=== PATIENT | female | born 1975 | race Caucasian/White ===

== ENCOUNTER 2016-12-09 19:19 | Emergency (ER) | payer BC ==
--- NOTE | 2016-12-09 20:24 | UC ---
Cardiac HPI - HPI Summary HPI Summary: The patient comes in today for: 1. Left sided chest pain--"I think I cracked a rib." Onset: 2 days ago. Palliative/provocative: Touching and deep breathing makes it worse. Quality: Ache Region: Left chest Severity: 8/10 Time: Constant. Associated symptoms: Event: She states that she fell two days ago. She wonders if she injured her ribs. She had pain in that area. * - History of Current Complaint Stated Complaint: S/P FALL PAIN IN LEFT RIBS Time Seen by Provider: 12/09/16 20:16 Hx Obtained From: Patient - Allergy/Home Medications Allergies/Adverse Reactions: Allergies Allergy/AdvReac Type Severity Reaction Status Date / Time Bee Venom Allergy Swelling Verified 12/07/16 19:25 Of Face,Lips,& Throat PMH/Surg Hx/FS Hx/Imm Hx Previously Healthy: No Endocrine History Of: Reports: Thyroid Disease - Hypothyroidism Denies: Diabetes, Hyperthyroidism, Hypothyroidism, Dyslipidemia Cardiovascular History Of: Reports: Cardiac Disorders - PSVT Denies: Hypertension, Pacemaker/ICD, Myocardial Infarction, Congestive Heart Failure, Atrial Fibrillation, Deep Vein Thrombosis, Bleeding Disorders Respiratory History Of: Reports: Asthma Denies: COPD, Bronchitis, Pneumonia, Pulmonary Embolism GI/ History Of: Reports: Gastroesophageal Reflux Denies: Ulcer, Gastrointestinal Bleed, Gall Bladder Disease, Kidney Stones, Diverticulitis, Renal Disease, Urosepsis Neurological History Of: Denies: TIA, CVA, Dementia, Seizures, Migraine Psychological History Of: Reports: Anxiety Denies: Depression, Bipolar Disorder, Schizophrenia, Post Traumatic Stress Disorder Cancer History Of: Denies: Lung Cancer, Colorectal Cancer, Breast Cancer, Prostate Cancer, Cervical Cancer Other History Of: Negative For: HIV, Hepatitis B, Hepatitis C, Anticoagulant Therapy - Surgical History Surgical History: Yes Surgery Procedure, Year, and Place: , 2013, [facility]. Endoscopy, 1996, [facility]. T&A, 1990. weight loss surgery 09/01/16. lap luca 11/14/16 - Family History Known Family History: Positive: Cardiac Disease, Hypertension - Social History Alcohol Use: None Substance Use Type: None Smoking Status (MU): Former Smoker - Immunization History Most Recent Influenza Vaccination: September 2013 Review of Systems Constitutional: Negative Skin: Negative Eyes: Negative ENT: Negative Respiratory: Negative Cardiovascular: Chest Pain Gastrointestinal: Negative Genitourinary: Negative All Other Systems Reviewed And Are Negative: Yes Physical Exam Triage Information Reviewed: Yes Appearance: Well-Appearing, No Pain Distress, Well-Nourished Vital Signs Reviewed: Yes Eyes: Positive: Conjunctiva Clear. Negative: Discharge ENT: Positive: Hearing grossly normal. Negative: Pharyngeal erythema, Nasal congestion, Nasal drainage, TM bulging, TM dull, TM red, Tonsillar swelling, Tonsillar exudate Dental: Negative: Gross Decay/Caries @, Dental Fracture @ Neck: Positive: Supple, Nontender, No Lymphadenopathy. Negative: Nuchal Rigidity Respiratory: Positive: Lungs clear, No respiratory distress, No accessory muscle use. Negative: Crackles, Wheezing Cardiovascular: Positive: RRR, No Murmur Abdomen Description: Positive: Nontender, No Organomegaly, Soft. Negative: Distended, Guarding Musculoskeletal: Positive: Strength Intact, Other: - She had tenderness to palpation of the left lower anterior rib area. No ecchymosis or edema or subcutaneous emphysema. Neurological: Positive: Alert, Muscle Tone Normal Psychological: Negative: Age Appropriate Behavior, Consolable Skin: Negative: rashes, breakdown Diagnostics - Radiology No standard instances Xray Interpretation: No Acute Changes Radiology Interpretation Completed By: Radiologist - Assessment/Plan Course Of Treatment: Patient told that her x-ray of the ribs were negative. Pain treatment options were offered, but she was not interested in any pain medication. - Clinical Impression Provider Diagnoses: Left chest wall injury, contusion Discharge - Discharge Plan Condition: Stable Disposition: HOME Patient Education Materials: Chest Wall Pain (ED) Referrals: Evita Sneed MD [Primary Care Provider] - 1 Week (Please see your primary care provider in about one to two weeks to see how well you are doing. If you get worse, please be seen sooner.) Additional Instructions: Please take Tylenol as needed for pain. If you get worse, please be seen sooner.
[2016-12-09 20:33] VITALS: BP 121/78
--- NOTE | 2016-12-09 21:09 | RAD ---
Indication: Pain with deep breath post fall one day ago. LEFT anterior lower rib pain radiating lateral. Comparison: March 25, 2015 Technique: 6 view LEFT unilateral rib series. Report: Elevated lung volumes. Clear lungs and pleural spaces. Negative for pneumothorax. The heart, pulmonary vasculature, and mediastinal contours are unremarkable. No LEFT rib fracture evident. Gallbladder fossa and epigastric surgical clips. IMPRESSION: 1. Negative for LEFT rib fracture. 2. Probable obstructive lung disease.
== END 2016-12-09 21:29 | disposition home or self-care (01) ==
LOC: UCCORT 19:19
DX: S20.212A Contusion of left front wall of thorax, initial encounter (principal); W19.XXXA Unspecified fall, initial encounter; Y93.9 Activity, unspecified; Y99.9 Unspecified external cause status
CPT/HCPCS: 99212; G0463

== ENCOUNTER 2017-01-23 10:30 | Emergency (ER) | payer BC ==
[2017-01-23 11:11] VITALS: BP 126/73
--- NOTE | 2017-01-23 11:17 | UC ---
Respiratory Complaint HPI - History of Current Complaint Chief Complaint: UCRespiratory Stated Complaint: COUGH Time Seen by Provider: 01/23/17 11:03 Hx Obtained From: Patient Hx Last Menstrual Period: 01/19/17 Onset/Duration: Gradual Onset Timing: Constant Severity Initially: Moderate Severity Currently: Moderate Character: Cough: Productive Aggravating Factors: Deep Breaths, Recumbent Position Associated Signs And Symptoms: Positive: Chills, Wheezing, URI, Nasal Congestion , Sinus Discomfort - Allergies/Home Medications Allergies/Adverse Reactions: Allergies Allergy/AdvReac Type Severity Reaction Status Date / Time Bee Venom Allergy Swelling Verified 01/23/17 11:01 Of Face,Lips,& Throat Home Medications: Home Medications Albuterol/Ipratropium NEB.SAMEER* [Duoneb (Albuterol 2.5 MG/Ipratropium 0.5 MG)] 1 neb INH Q6H PRN 01/23/17 [History Confirmed 01/23/17] Fluticasone NASAL * [Flonase *] 1 spray INH BID 01/23/17 [History Confirmed ] PMH/Surg Hx/FS Hx/Imm Hx Previously Healthy: No - asthma. Other History Of: Negative For: HIV, Hepatitis B, Hepatitis C, Anticoagulant Therapy - Surgical History Surgical History: Yes Surgery Procedure, Year, and Place: , 2013, [facility]. Endoscopy, 1996, [facility]. T&A, 1990. weight loss surgery 09/01/16. lap luca 11/14/16 - Family History Known Family History: Positive: Cardiac Disease, Hypertension - Social History Alcohol Use: None Substance Use Type: None Smoking Status (MU): Former Smoker When Did the Patient Quit Smoking/Using Tobacco: 1999 - Immunization History Most Recent Influenza Vaccination: September 2013 Review of Systems All Other Systems Reviewed And Are Negative: Yes Physical Exam Triage Information Reviewed: Yes Appearance: Well-Appearing, No Pain Distress, Well-Nourished Vital Signs: Initial Vital Signs Temp 98.4 F 01/23/17 10:56 Pulse 65 01/23/17 10:56 Resp 14 01/23/17 10:56 BP 126/73 01/23/17 10:56 Pulse Ox 98 01/23/17 10:56 Vital Signs Reviewed: Yes Eye Exam: Normal ENT Exam: Normal Neck exam: Normal Respiratory Exam: Normal Cardiovascular Exam: Normal Abdominal Exam: Normal Musculoskeletal Exam: Normal Neurological Exam: Normal Psychological Exam: Normal Skin Exam: Normal UC Diagnostic Evaluation - Laboratory O2 Sat by Pulse Oximetry: 98 Respiratory Course/Dx - Differential Dx/Diagnosis Provider Diagnoses: acute bronchitis. acute asthma exacerbation. Discharge - Discharge Plan Condition: Good Disposition: HOME Prescriptions: Acetaminop/Codeine 30 MG TAB* [Tylenol/Codeine 30 MG TAB*] 1 tab PO Q8H PRN #12 tab MDD 1 PRN Reason: Cough Azithromyxin MICHAEL (NF) [Z-Michael (Zithromax) 250 mg tabs #6] 2 tab PO .TODAY, THEN 1 DAILY #6 tab predniSONE TAB* [Deltasone TAB*] 20 mg PO DAILY #20 tab Patient Education Materials: Acute Bronchitis (ED) Forms: *Work Release Referrals: Evita Sneed MD [Primary Care Provider] - If Needed
== END 2017-01-23 11:23 | disposition home or self-care (01) ==
LOC: UCCORT 10:30
DX: J45.901 Unspecified asthma with (acute) exacerbation (principal); J20.9 Acute bronchitis, unspecified; Z87.891 Personal history of nicotine dependence
CPT/HCPCS: 99212; G0463

== ENCOUNTER 2018-03-08 20:10 | Emergency (ER) | payer BC ==
--- OUTSIDE RECORDS SUMMARY | 2018-03-08 20:28 | XMS REPORT ---
:1975 External Reference #:[id number] Author Organization [facility] Address [address] [place] [address] Phone [phone] Care Team Providers Name Role Phone Evita Sneed M.D. Primary Care Physician Unavailable Payers Type Date Identification Numbers Payment Provider Subscriber Commercial Effective: Policy Number: [id number] [facility] Meghan Allen 2013 Healthcare Group Number: [id number] [address] Group Name: [place] [address] PayID: [id number] Problems Date Description Provider Status Onset: 08/21/2013 Allergic rhinitis due to pollen MICHAEL Brewer Active Onset: 08/21/2013 Extrinsic asthma without status MICHAEL Brewer Active asthmaticus Onset: 08/21/2013 Allergic rhinitis MICHAEL Brewer Active Onset: 03/19/2014 Acute upper respiratory infection MICHAEL Brewer Active of multiple sites Onset: 08/06/2014 Exacerbation of asthma MICHAEL Brewer Active Onset: 04/10/2015 Cough MICHAEL Brewer Active Onset: 05/22/2015 Body mass index 40+ - severely MICHAEL Brewer Active obese Onset: 05/22/2015 Uncomplicated severe persistent MICHAEL Brewer Active asthma Onset: 06/19/2015 Immunization MICHAEL Brewer Active Onset: 06/19/2015 Severe persistent asthma with Trina Chantelle, RESULTS ENGINEER-BC Active (acute) exacerbation Onset: 10/06/2015 Allergic urticaria Trina LockhartJAILENEP-BC Active Onset: 09/29/2016 Allergic rhinitis due to animals Marilynn Art, Active RESULTS ENGINEER-C Onset: 10/21/2016 Uncomplicated severe persistent Octavia YanickJAILENE bullockP-C Active asthma Onset: 01/13/2017 Body mass index 30+ - obesity Isaías Crowley M.D. Active Family History Date Family Member(s) Problem(s) Comments General Seasonal Allergies General Asthma General Bronchitis General Diabetes General Celiac General Gastroesophageal Reflux Disease (GERD) General Heart Disease General Hypertension General Migraine General Thyroid Disease General Skin Disease/ Rash Father Bronchitis Father Heart Disease Father Hypertension Father Skin Disease/ Rash psoriasis Mother Asthma Mother Bronchitis Mother Diabetes Mother Headache, Chronic Mother Thyroid Disease First Son Asthma First Son Migraine First Son Skin Disease/ Rash ezcema First Daughter Skin Disease/ Rash ezcema First Brother Seasonal Allergies First Brother Bronchitis First Brother Asthma First Brother Headache, Chronic First Sister Seasonal Allergies First Sister Asthma First Sister Bronchitis First Sister Celiac Social History Type Date Description Comments Marital Status Legal Status: Lives With Spouse Lives With Children Home Environment 20+Year Old Home, 2 Years In Current Home Home Environment 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 Home Environment Has central air Home Environment The basement is dry Home Environment Cotton Comforter Home Environment Mattress is 5 years old Home Environment Mattress is not encased in an allergy proof case Home Environment Regular Mattress Home Environment Pillows are not encased in an allergy proof case Home Environment There are no draperies in the home Home Environment The home is not ej Home Environment The floors are carpeted Home Environment The floors are wood Home Environment Uses forced air heating Home Environment [place] Home Environment Water Source: [facility] Smoke-Free Home is smoke-free Smoke-Free Work is smoke-free Pets None 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 RESULTS ENGINEER-C Single-Dose Vial(S), Discard After Use. Syringe 3ML 03/17/ Active [id number] 4units For Use With Shaila L/L No 2016 Xolair. Duskelly, Needle BONIFACIO-C Needle 18G X 03/17/ Active [id number] 4units For Use With Shaila 1" BD 2016 Xolair. BONIFACIO Sellers-C Auvi-Q 09/21/ Active Solution 0.3mg/0.3M 3-2pac use as J45.50 Shaila 2017 Auto-Injec L ks directed. im. Marlo t BONIFACIO-C Cetirizine 08/26/ Active Tablets 10mg 30tabs 1 by mouth J45.50 Octavia HCL 2017 every day MITCHELL Herndon J30.81 J45.50 Xopenex HFA 06/02/2016 Active Aerosol 45mcg/Act 1inhaler 2 puffs J45.50 Quinn Denton q4-6 Kirkpatrick, hours as M.D. needed for sob, cough, wheeze Ipratropium 03/25/2015 Active Solution 0.5-2.5(3) 1box 1 vial J45.50 Isaías [place]/Alb mg/3ML via Viviana Crowley uterol nebulizer Sulfate every 6 hours as needed. Levalbutero 03/21/2015 Active Nebulizer 1.25mg/3ML 1box use via Ghislaine M l HCL nebulizer Narinder, every 4 M.D. -6 hours prnr shortness of breath, cough or wheezing Albuterol 09/05/2014 Active Nebulizer (2.5mg/3ML 1Box #1 via J45.50 Isaías Sulfate ) 0.083% nebulizer Viviana Crowley every 4-6 hours as needed for cough, shortness of breath and wheezing Symbicort 08/15/2012 Active Aerosol 160-4.5mcg 3units inhale 2 Marilynn /Act puffs in Corona-Princess the son, MITCHELL morning and in the evening Montelukast 08/15/2012 Active Tablets 10mg 90tabs 1 tablet Marilynn Sodium by mouth Shannan every son, RESULTS ENGINEER-Aida evening Synthroid Active Tablets 125mcg once a Unknown day Fluticasone Active Suspension 50mcg/Act 1 squirt J45.50 Unknown Propionate each nostril daily Colace Active Capsules 100mg 2 by Unknown mouth every day Multivitami Active Tablets once a Unknown n Women day Xolair Active Solution 150mg 2units Reconstit Shaila Rec irina Each Dussing, Of 2 RESULTS ENGINEER-C Vials With 1.4ML Sterile Water. Inject 1.2ML Separatel y Subcutane ously From Each Vial Once Every Four Pantoprazol Active Tablets DR 40mg take 1 Unknown e Sodium tablet by mouth once daily Sucralfate Active Tablets 1gm Unknown Dymista Active Suspension 137-50mcg/ 2 squirt Unknown Act each nostril daily Fluoxetine Active Tablets 20mg take 3 Unknown HCL tablets by mouth daily Medications Administered in Office Medication Date Status Form Strength Qnty SIG Indications Ordering Provider Xolair Administered Injection Galina Hays RESULTS ENGINEER-C Xolair Administered Injection Quinn Kirkpatrick M.D. Xolair Administered Injection Milla 018 Bal, RESULTS ENGINEER-C Xolair Administered Injection Quinn Kirkpatrick M.D. Xolair Administered Injection Milla 018 Bal, RESULTS ENGINEER-C Xolair Administered Injection Milla 018 Bal, RESULTS ENGINEER-C Xolair Administered Injection Quinn Kirkpatrick M.D. Xolair Administered Injection Milla 018 Bal, RESULTS ENGINEER-C Xolair Administered Injection Galina Hernandez M.D. Xolair Administered Injection Octavia Herndon RESULTS ENGINEER-C Xolair Administered Injection Quinn Kirkpatrick M.D. Xolair Administered Injection Quinn Kirkpatrick M.D. Xolair Administered Injection Milla 017 Uldrich, RESULTS ENGINEER-C Xolair Administered Injection Quinn Kirkpatrick M.D. Xolair Administered Injection Milla 017 Uldrich, RESULTS ENGINEER-C Xolair Administered Injection Milla 017 Uldrich, RESULTS ENGINEER-C Xolair Administered Injection Marilynn 017 Kaelyn, RESULTS ENGINEER-C Xolair Administered Injection Isaías Crowley, 017 Viviana Xolair Administered Injection Octavia 017 Yanick, RESULTS ENGINEER-C Xolair Administered Injection Octavia 017 Yanick, RESULTS ENGINEER-C Xolair Administered Injection Octavia 017 Yanick, RESULTS ENGINEER-C Xolair Administered Injection Shaila Dussing, 017 RESULTS ENGINEER-C Xolair Administered Injection Octavia 017 Yanick, RESULTS ENGINEER-C Xolair Administered Injection Isaías Carline, 016 Viviana Xolair Administered Injection Quinn Kirkpatrick M.D. Xolair Administered Injection Quinn Denton 016 Viviana Kirkpatrick Xolair Administered Injection Debbie Genao 016 Piero, RPA-C Xolair Administered Injection Shaila Dussing, 016 RESULTS ENGINEER-C Xolair Administered Injection Trina 016 Chantelle, RESULTS ENGINEER-BC Xolair Administered Injection Trina 016 Chantelle, RESULTS ENGINEER-BC Xolair Administered Injection Shaila Dussing, 016 RESULTS ENGINEER-C Xolair Administered Injection Shaila Dussing, 016 RESULTS ENGINEER-C Xolair Administered Injection Trina 016 Chantelle, RESULTS ENGINEER-BC Xolair Administered Injection Trina 016 Chantelle, RESULTS ENGINEER-BC Xolair Administered Injection Trina 016 Chantelle, RESULTS ENGINEER-BC Xolair Administered Injection Shaila Dussing, 015 RESULTS ENGINEER-C Xolair Administered Injection Shaila Dussing, 015 RESULTS ENGINEER-C Xolair Administered Injection Trina 015 Chantelle, RESULTS ENGINEER-BC Xolair Administered Injection Trina 015 Chantelle, RESULTS ENGINEER-BC Injection Administered Injection Glenn 011 Frankie, M.D. Injection Administered Injection Glenn 011 Frankie, M.D. Injection Administered Injection Glenn 011 Frankie, M.D. Injection Administered Injection Glenn 011 Frankie, M.D. Injection Administered Injection Glenn 011 Frankie, M.D. Injection Administered Injection Glenn 011 Frankie, M.D. Injection Administered Injection Glenn 011 Frankie, M.D. Injection Administered Injection Glenn 011 Frankie, M.D. Injection Administered Injection Glenn 011 Frankie, M.D. Injection Administered Injection Glenn 011 Frankie, M.D. Injection Administered Injection Glenn 010 Frankie, M.D. Injection Administered Injection Glenn 010 Frankie, M.D. Injection Administered Injection Glenn 010 Frankie, M.D. Injection Administered Injection Glenn 010 Frankie, M.D. Injection Administered Injection Glenn 010 Frankie, M.D. Injection Administered Injection Glenn 010 Frankie, M.D. Injection Administered Injection Glenn 010 Frankie, M.D. Injection Administered Injection Glenn 010 Frankie, M.D. Injection Administered Injection Glenn 010 Frankie, M.D. Injection Administered Injection Glenn 010 Frankie, M.D. Injection Administered Injection Glenn 010 Frankie, M.D. Injection Administered Injection Glenn 010 Frankie, M.D. Injection Administered Injection Glenn 010 Frankie, M.D. Injection Administered Injection Glenn 010 Frankie, M.D. Injection Administered Injection Glenn 010 Frankie, M.D. Injection Administered Injection Glenn 010 Frankie, M.D. Injection Administered Injection Glenn 010 Frankie, M.D. Injection Administered Injection Glenn 010 Frankie, M.D. Injection Administered Injection Glenn 010 Frankie, M.D. Injection Administered Injection Glenn 010 Frankie, M.D. Injection Administered Injection Glenn 010 Frankie, M.D. Injection Administered Injection Glenn 010 Frankie, M.D. Injection Administered Injection Glenn 010 Frankie, M.D. Injection Administered Injection Glenn 010 Frankie, M.D. Injection Administered Injection Glenn 010 Frankie, M.D. Injection Administered Injection Glenn 010 Frankie, M.D. Injection Administered Injection Glenn 010 Frankie, M.D. Injection Administered Injection Glenn 010 Frankie, M.D. Injection Administered Injection Glenn 010 Frankie, M.D. Injection Administered Injection Glenn 010 Frankie, M.D. Injection Administered Injection Glenn 010 Frankie, M.D. Injection Administered Injection Glenn 010 Frankie, M.D. Injection Administered Injection Glenn 010 Frankie, M.D. Injection Administered Injection Glenn 010 Frankie, M.D. Injection Administered Injection Glenn 010 Frankie, M.D. Injection Administered Injection Hayes Goss, M.D. Injection Administered Injection Ghislaine M Andi Barcenas, M.D. Injection Administered Injection Ghislaine M Andi Barcenas, M.D. Injection Administered Injection Glenn 009 Frankie, M.D. Injection Administered Injection Glenn 009 Frankie, M.D. Injection Administered Injection Glenn 009 Frankie, M.D. Injection Administered Injection Glenn 009 Frankie, M.D. Injection Administered Injection Glenn 009 Frankie, M.D. Injection Administered Injection Glenn 009 Frankie, M.D. Injection Administered Injection Glenn 009 Frankie, M.D. Injection Administered Injection Glenn 009 Frankie, M.D. Injection Administered Injection Glenn 009 Frankie, M.D. Injection Administered Injection Andrés 009 Chrostowski, M.D. Injection Administered Injection Glenn 009 Frankie, M.D. Injection Administered Injection Glenn 009 Frankie, M.D. Injection Administered Injection Glenn 009 Frankie, M.D. Injection Administered Injection Glenn 008 Frankie, M.D. Injection Administered Injection Glenn 008 Frankie, M.D. Injection Administered Injection Glenn 008 Frankie, M.D. Injection Administered Injection Glenn 008 Frankie, M.D. Injection Administered Injection Glenn 008 Frankie, M.D. Injection Administered Injection Glenn 008 Frankie, M.D. Injection Administered Injection Glenn 008 Frankie, M.D. Injection Administered Injection Glenn 008 Frankie, M.D. Injection Administered Injection Glenn 008 Frankie, M.D. Injection Administered Injection Glenn 007 Frankie, M.D. Injection Administered Injection Glenn 007 Frankie, M.D. Injection Administered Injection Glenn 007 Frankie, M.D. Injection Administered Injection Glenn 007 Frankie, M.D. Injection Administered Injection Glenn 007 Frankie, M.D. Injection Administered Injection Glenn 007 Frankie, M.D. Injection Administered Injection Glenn 007 Frankie, M.D. Injection Administered Injection Glenn 007 Frankie, M.D. Injection Administered Injection Glenn 007 Frankie, M.D. Injection Administered Injection Glenn 007 Frankie, M.D. Injection Administered Injection Glenn 007 Frankie, M.D. Injection Administered Injection Glenn 007 Frankie, M.D. Injection Administered Injection Glenn 007 Frankie, M.D. Injection Administered Injection Glenn 007 Frankie, M.D. Injection Administered Injection Glenn 007 Frankie, M.D. Injection Administered Injection Glenn 007 Frankie, M.D. Injection Administered Injection Glenn 007 Frankie, M.D. Injection Administered Injection Glenn 007 Frankie, M.D. Injection Administered Injection Glenn 007 Frankie, M.D. Injection Administered Injection Glenn 006 Frankie, M.D. Injection Administered Injection Glenn 006 Frankie, M.D. Injection Administered Injection Glenn 006 Frankie, M.D. Injection Administered Injection Glenn 006 Frankie, M.D. Injection Administered Injection Glenn 006 Frankie, M.D. Injection Administered Injection Glenn 006 Frankie, M.D. Injection Administered Injection Glenn 006 Frankie, M.D. Injection Administered Injection Glenn 006 Frankie, M.D. Injection Administered Injection Glenn 006 Frankie, M.D. Injection Administered Injection Glenn 006 Frankie, M.D. Injection Administered Injection Glenn 006 Frankie, M.D. Injection Administered Injection Glenn 006 Frankie, M.D. Injection Administered Injection Glenn 006 Frankie, M.D. Injection Administered Injection Glenn 006 Frankie, M.D. Injection Administered Injection Glenn 006 Frankie, M.D. Injection Administered Injection Glenn 006 Frankie, M.D. Injection Administered Injection Lgenn 006 Frankie, M.D. Injection Administered Injection Glenn 006 Frankie, M.D. Injection Administered Injection Glenn 006 Frankie, M.D. Injection Administered Injection Glenn 006 Frankie, M.D. Injection Administered Injection Glenn 006 Frankie, M.D. Injection Administered Injection Glenn 006 Frankie, M.D. Injection Administered Injection Glenn 006 Frankie, M.D. Injection Administered Injection Glenn 005 Frankie, M.D. Injection Administered Injection Glenn 005 Frankie, M.D. Injection Administered Injection Glenn 005 Frankie, M.D. Injection Administered Injection Glenn 005 Frankie, M.D. Injection Administered Injection Glenn 005 Frankie, M.D. Injection Administered Injection Glenn 005 Frankie, M.D. Injection Administered Injection Glenn 005 Frankie, M.D. Injection Administered Injection Glenn 005 Frankie, M.D. Injection Administered Injection Glenn 005 Frankie, M.D. Injection Administered Injection Glenn 005 Frankie, M.D. Injection Administered Injection Glenn 005 Frankie, M.D. Injection Administered Injection Glenn 005 Frankie, M.D. Injection Administered Injection Glenn 005 Frankie, M.D. Injection Administered Injection Glenn 005 Frankie, M.D. Injection Administered Injection Glenn 005 Frankie, M.D. Injection Administered Injection Glenn 005 Frankie, M.D. Injection Administered Injection Glenn 005 Frankie, M.D. Injection Administered Injection Glenn 005 Frankie, M.D. Injection Administered Injection Glenn 005 Frankie, M.D. Injection Administered Injection Glenn 005 Frankie, M.D. Injection Administered Injection Glenn 005 Frankie, M.D. Injection Administered Injection Glenn 004 Frankie, M.D. Injection Administered Injection Glenn 004 Frankie, M.D. Injection Administered Injection Glenn 004 Frankie, M.D. Injection Administered Injection Glenn 004 Frankie, M.D. Injection Administered Injection Glenn 004 Frankie, M.D. Injection Administered Injection Glenn 004 Frankie, M.D. Injection Administered Injection Glenn 004 Frankie, M.D. Injection Administered Injection Glenn 004 Frankie, M.D. Injection Administered Injection Glenn 004 Frankie, M.D. Injection Administered Injection Glenn 004 Frankie, M.D. Injection Administered Injection Glenn 004 Frankie, M.D. Injection Administered Injection Glenn 004 Frankie, M.D. Injection Administered Injection Glenn 004 Frankie, M.D. Injection Administered Injection Lgenn 004 Frankie, M.D. Injection Administered Injection Glenn 004 Frankie, M.D. Injection Administered Injection Glenn 004 Frankie, M.D. Injection Administered Injection Glenn 004 Frankie, M.D. Injection Administered Injection Glenn 004 Frankie, M.D. Injection Administered Injection Glenn 004 Frankie, M.D. Injection Administered Injection Glenn 004 Frankie, M.D. Injection Administered Injection Glenn 004 Frankie, M.D. Injection Administered Injection Glenn 004 Frankie, M.D. Injection Administered Injection Glenn 004 Frankie, M.D. Injection Administered Injection Glenn 003 Frankie, M.D. Injection Administered Injection Glenn 003 Frankie, M.D. Injection Administered Injection Glenn 003 Frankie, M.D. Injection Administered Injection Glenn 003 Frankie, M.D. Injection Administered Injection Glenn 003 Frankie, M.D. Injection Administered Injection Glenn 003 Frankie, M.D. Injection Administered Injection Glenn 003 Frankie, M.D. Injection Administered Injection Glenn 003 Frankie, M.D. Injection Administered Injection Glenn 003 Frankie, M.D. Injection Administered Injection Glenn 003 Frankie, M.D. Injection Administered Injection Glenn 003 Frankie, M.D. Injection Administered Injection Glenn 003 Frankie, M.D. Injection Administered Injection Glenn 003 Frankie, M.D. Injection Administered Injection Glenn 003 Frankie, M.D. Injection Administered Injection Glenn 003 Frankie, M.D. Injection Administered Injection Glenn 003 Frankie, M.D. Injection Administered Injection Glenn 003 Frankie, M.D. Injection Administered Injection Glenn 003 Frankie, M.D. Injection Administered Injection Glenn 003 Frankie, M.D. Injection Administered Injection Glenn 003 Frankie, M.D. Immunizations CPT Code Status Date Vaccine Lot # 93932 Given 10/30/2013 Influenza Vaccine 05410 Given Unknown Pneumococcal Vaccine 00043 Given Unknown Influenza Vaccine 07014 Given Unknown Influenza Vaccine 08038 Given Unknown Influenza Vaccine Vital Signs Date Vital Result Comment 02/23/2018 Height 72 inches 6'0" Weight 260.00 lb Weight in kg's 117.936 Respiratory Rate 24 /min Heart Rate 75 /min O2 % BldC Oximetry 96 % BP Systolic 110 mmHg BP Diastolic 63 mmHg [facility] Test 23 BMI (Body Mass Index) 35.3 kg/m2 01/18/2018 Height 72 inches 6'0" Weight 252.00 lb Weight in kg's 114.307 Respiratory Rate 18 /min Heart Rate 68 /min O2 % BldC Oximetry 95 % BP Systolic 114 mmHg BP Diastolic 63 mmHg [facility] Control Test 15 BMI (Body Mass Index) 34.2 kg/m2 12/21/2017 Height 72 inches 6'0" Weight 258.00 lb Weight in kg's 117.029 Respiratory Rate 18 /min Heart Rate 70 /min O2 % BldC Oximetry 98 % BP Systolic 106 mmHg BP Diastolic 64 mmHg [facility] Control Test 22 BMI (Body Mass Index) 35.0 kg/m2 11/23/2017 Height 72 inches 6'0" Weight 258.00 lb Weight in kg's 117.029 Respiratory Rate 18 /min Heart Rate 73 /min O2 % BldC Oximetry 98 % BP Systolic 113 mmHg BP Diastolic 69 mmHg [facility] Control Test 24 BMI (Body Mass Index) 35.0 kg/m2 10/26/2017 Height 72 inches 6'0" Weight 260.00 lb Weight in kg's 117.936 Respiratory Rate 20 /min Heart Rate 78 /min O2 % BldC Oximetry 98 % BP Systolic 111 mmHg BP Diastolic 69 mmHg [facility] Control Test 24 BMI (Body Mass Index) 35.3 kg/m2 09/28/2017 Height 72 inches 6'0" Weight 260.00 lb Weight in kg's 117.936 Respiratory Rate 16 /min Heart Rate 70 /min O2 % BldC Oximetry 98 % BP Systolic 121 mmHg BP Diastolic 72 mmHg [facility] Control Test 22 BMI (Body Mass Index) 35.3 kg/m2 08/25/2017 Height 72 inches 6'0" Weight 254.00 lb Weight in kg's 115.214 Respiratory Rate 18 /min Heart Rate 82 /min O2 % BldC Oximetry 97 % BP Systolic 117 mmHg BP Diastolic 64 mmHg [facility] Control Test 24 BMI (Body Mass Index) 34.4 kg/m2 07/27/2017 Height 72 inches 6'0" Weight 258.00 lb Weight in kg's 117.029 Respiratory Rate 16 /min Heart Rate 73 /min O2 % BldC Oximetry 98 % BP Systolic 112 mmHg BP Diastolic 65 mmHg [facility] Test 24 BMI (Body Mass Index) 35.0 kg/m2 06/22/2017 Height 72 inches 6'0" Weight 261.00 lb Weight in kg's 118.390 Respiratory Rate 16 /min Heart Rate 77 /min O2 % BldC Oximetry 98 % BP Systolic 119 mmHg BP Diastolic 72 mmHg [facility] Test 24 BMI (Body Mass Index) 35.4 kg/m2 05/18/2017 Height 72 inches 6'0" Weight 270.00 lb Weight in kg's 122.472 Respiratory Rate 16 /min Heart Rate 83 /min O2 % BldC Oximetry 97 % BP Systolic 122 mmHg BP Diastolic 69 mmHg [facility] Test 24 BMI (Body Mass Index) 36.6 kg/m2 04/20/2017 Height 72 inches 6'0" Weight 272.00 lb Weight in kg's 123.379 Respiratory Rate 20 /min 72 Heart Rate 83 /min O2 % BldC Oximetry 97 % BP Systolic 116 mmHg BP Diastolic 63 mmHg [facility] Control Test 21 BMI (Body Mass Index) 36.9 kg/m2 03/16/2017 Height 72 inches 6'0" Weight 274.00 lb Weight in kg's 124.286 Respiratory Rate 20 /min Heart Rate 74 /min O2 % BldC Oximetry 98 % BP Systolic 121 mmHg BP Diastolic 68 mmHg [facility] Control Test 23 BMI (Body Mass Index) 37.2 kg/m2 02/09/2017 Height 72 inches 6'0" Weight 281.00 lb Weight in kg's 127.462 Respiratory Rate 16 /min Heart Rate 77 /min O2 % BldC Oximetry 97 % BP Systolic 124 mmHg BP Diastolic 70 mmHg [facility] Control Test 19 BMI (Body Mass Index) 38.1 kg/m2 01/13/2017 Height 72 inches 6'0" Weight 284.00 lb Weight in kg's 128.822 Respiratory Rate 16 /min Heart Rate 74 /min O2 % BldC Oximetry 97 % BP Systolic 114 mmHg BP Diastolic 65 mmHg BMI (Body Mass Index) 38.5 kg/m2 12/16/2016 Height 72 inches 6'0" Weight 292.00 lb Weight in kg's 132.451 Respiratory Rate 20 /min Heart Rate 75 /min O2 % BldC Oximetry 96 % BP Systolic 110 mmHg BP Diastolic 76 mmHg [facility] Control Test 23 BMI (Body Mass Index) 39.6 kg/m2 11/18/2016 Height 72 inches 6'0" Weight 296.00 lb Weight in kg's 134.266 Respiratory Rate 20 /min Heart Rate 84 /min O2 % BldC Oximetry 97 % BP Systolic 121 mmHg BP Diastolic 65 mmHg [facility] Control Test 24 BMI (Body Mass Index) 40.1 kg/m2 10/21/2016 Height 72 inches 6'0" Weight 312.00 lb Weight in kg's 141.523 Respiratory Rate 16 /min Heart Rate 83 /min O2 % BldC Oximetry 97 % BP Systolic 114 mmHg BP Diastolic 70 mmHg [facility] Control Test 22 BMI (Body Mass Index) 42.3 kg/m2 09/21/2016 Height 72 inches 6'0" Weight 324.00 lb Weight in kg's 146.966 Respiratory Rate 16 /min Heart Rate 88 /min O2 % BldC Oximetry 97 % BP Systolic 113 mmHg BP Diastolic 67 mmHg [facility] Control Test 22 BMI (Body Mass Index) 43.9 kg/m2 08/26/2016 Height 72 inches 6'0" Weight 346.00 lb Weight in kg's 156.946 Respiratory Rate 20 /min Heart Rate 79 /min O2 % BldC Oximetry 96 % BP Systolic 123 mmHg BP Diastolic 69 mmHg [facility] Control Test 22 BMI (Body Mass Index) 46.9 kg/m2 07/29/2016 Height 72 inches 6'0" Weight 354.00 lb Weight in kg's 160.574 Respiratory Rate 24 /min Heart Rate 90 /min O2 % BldC Oximetry 97 % BP Systolic 124 mmHg BP Diastolic 73 mmHg [facility] Control Test 22 BMI (Body Mass Index) 48.0 kg/m2 06/30/2016 Height 72 inches 6'0" Weight 354.00 lb Patient stated Weight in kg's 160.574 Respiratory Rate 20 /min Heart Rate 91 /min O2 % BldC Oximetry 97 % BP Systolic 121 mmHg BP Diastolic 76 mmHg Asthma Control Test 21 BMI (Body Mass Index) 48.0 kg/m2 06/02/2016 Height 72 inches 6'0" Weight 350.00 lb Weight in kg's 158.760 Respiratory Rate 20 /min Heart Rate 78 /min O2 % BldC Oximetry 97 % BP Systolic 121 mmHg BP Diastolic 72 mmHg Asthma Control Test 19 BMI (Body Mass Index) 47.5 kg/m2 04/28/2016 Height 72 inches 6'0" Weight 352.00 lb Weight in kg's 159.667 Respiratory Rate 16 /min Heart Rate 79 /min O2 % BldC Oximetry 97 % BP Systolic 118 mmHg BP Diastolic 73 mmHg Asthma Control Test 16 BMI (Body Mass Index) 47.7 kg/m2 04/07/2016 Height 72 inches 6'0" Weight 352.00 lb Patient stated. Weight in kg's 159.667 Respiratory Rate 16 /min Heart Rate 91 /min O2 % BldC Oximetry 96 % BP Systolic 125 mmHg BP Diastolic 69 mmHg Asthma Control Test 8 BMI (Body Mass Index) 47.7 kg/m2 03/30/2016 Height 72 inches 6'0" Weight 352.00 lb Weight in kg's 159.667 Respiratory Rate 20 /min Heart Rate 74 /min O2 % BldC Oximetry 98 % BP Systolic 121 mmHg BP Diastolic 77 mmHg Asthma Control Test 17 BMI (Body Mass Index) 47.7 kg/m2 03/11/2016 Height 72 inches 6'0" Weight 351.00 lb Weight in kg's 159.214 Respiratory Rate 16 /min Heart Rate 79 /min Body Temperature 97.1 F O2 % BldC Oximetry 97 % BP Systolic 114 mmHg BP Diastolic 65 mmHg Asthma Control Test 11 BMI (Body Mass Index) 47.6 kg/m2 02/19/2016 Height 72 inches 6'0" Weight 351.00 lb Weight in kg's 159.214 Respiratory Rate 20 /min Heart Rate 97 /min O2 % BldC Oximetry 97 % BP Systolic 118 mmHg BP Diastolic 66 mmHg Asthma Control Test 24 BMI (Body Mass Index) 47.6 kg/m2 01/22/2016 Height 72 inches 6'0" Weight 351.00 lb Weight in kg's 159.214 Respiratory Rate 18 /min Heart Rate 82 /min O2 % BldC Oximetry 96 % BP Systolic 123 mmHg BP Diastolic 66 mmHg Asthma Control Test 23 BMI (Body Mass Index) 47.6 kg/m2 12/23/2015 Height 72 inches 6'0" Weight 353.00 lb patient stated Weight in kg's 160.121 Respiratory Rate 20 /min Heart Rate 71 /min Body Temperature 21.0 F O2 % BldC Oximetry 98 % BP Systolic 119 mmHg BP Diastolic 66 mmHg BMI (Body Mass Index) 47.9 kg/m2 11/25/2015 Height 72 inches 6'0" Weight 357.00 lb Patient stated Weight in kg's 161.935 Respiratory Rate 20 /min Heart Rate 78 /min O2 % BldC Oximetry 97 % BP Systolic 124 mmHg BP Diastolic 68 mmHg Asthma Control Test 15 BMI (Body Mass Index) 48.4 kg/m2 10/20/2015 Height 72 inches 6'0" Weight 358.00 lb Patient stated Weight in kg's 162.389 Respiratory Rate 20 /min Heart Rate 87 /min O2 % BldC Oximetry 98 % BP Systolic 122 mmHg BP Diastolic 74 mmHg Asthma Control Test 22 BMI (Body Mass Index) 48.5 kg/m2 10/06/2015 Height 72 inches 6'0" Weight 351.00 lb patient stated Weight in kg's 159.214 Respiratory Rate 16 /min Heart Rate 74 /min Body Temperature 98.6 F O2 % BldC Oximetry 97 % BP Systolic 114 mmHg BP Diastolic 72 mmHg Asthma Control Test 23 BMI (Body Mass Index) 47.6 kg/m2 09/22/2015 Height 72 inches 6'0" Weight 352.00 lb Weight in kg's 159.667 Respiratory Rate 16 /min Heart Rate 69 /min O2 % BldC Oximetry 98 % BP Systolic 126 mmHg BP Diastolic 74 mmHg Asthma Control Test 22 BMI (Body Mass Index) 47.7 kg/m2 08/25/2015 Height 72 inches 6'0" Weight 348.00 lb Weight in kg's 157.853 Respiratory Rate 16 /min Heart Rate 64 /min O2 % BldC Oximetry 96 % BP Systolic 115 mmHg BP Diastolic 69 mmHg Asthma Control Test 21 BMI (Body Mass Index) 47.2 kg/m2 07/24/2015 Height 72 inches 6'0" Weight 346.00 lb Weight in kg's 156.946 Respiratory Rate 18 /min Heart Rate 81 /min O2 % BldC Oximetry 97 % BP Systolic 133 mmHg BP Diastolic 78 mmHg BMI (Body Mass Index) 46.9 kg/m2 06/19/2015 Height 72 inches 6'0" Weight 346.00 lb Patient States Weight in kg's 156.946 Respiratory Rate 16 /min Heart Rate 74 /min Body Temperature 97.6 F O2 % BldC Oximetry 97 % BP Systolic 129 mmHg BP Diastolic 75 mmHg Asthma Control Test 20 BMI (Body Mass Index) 46.9 kg/m2 06/17/2015 Height 72 inches 6'0" Weight 346.00 lb Weight in kg's 156.946 Respiratory Rate 16 /min Heart Rate 79 /min O2 % BldC Oximetry 97 % BP Systolic 125 mmHg BP Diastolic 68 mmHg Asthma Control Test 21 BMI (Body Mass Index) 46.9 kg/m2 05/22/2015 Height 72 inches 6'0" Weight 347.00 lb Weight in kg's 157.399 Respiratory Rate 20 /min Heart Rate 83 /min O2 % BldC Oximetry 95 % BP Systolic 124 mmHg BP Diastolic 72 mmHg Asthma Control Test 21 BMI (Body Mass Index) 47.1 kg/m2 04/22/2015 Height 71 inches 5'11" Weight 344.00 lb Weight in kg's 156.038 Respiratory Rate 16 /min Heart Rate 83 /min O2 % BldC Oximetry 98 % BP Systolic 111 mmHg BP Diastolic 65 mmHg Asthma Control Test 16 BMI (Body Mass Index) 48.0 kg/m2 04/17/2015 Height 71 inches 5'11" Weight 344.00 lb Weight in kg's 156.038 Respiratory Rate 18 /min Heart Rate 81 /min O2 % BldC Oximetry 97 % BP Systolic 116 mmHg BP Diastolic 68 mmHg Asthma Control Test 19 BMI (Body Mass Index) 48.0 kg/m2 04/10/2015 Height 71 inches 5'11" Weight 344.00 lb Weight in kg's 156.038 Respiratory Rate 16 /min Heart Rate 68 /min Body Temperature 97.9 F O2 % BldC Oximetry 97 % BP Systolic 124 mmHg BP Diastolic 72 mmHg Asthma Control Test 14 BMI (Body Mass Index) 48.0 kg/m2 04/01/2015 Height 71 inches 5'11" Weight 337.00 lb Weight in kg's 152.863 Respiratory Rate 18 /min Heart Rate 74 /min O2 % BldC Oximetry 98 % BP Systolic 118 mmHg BP Diastolic 68 mmHg Asthma Control Test 15 BMI (Body Mass Index) 47.0 kg/m2 03/25/2015 Height 71 inches 5'11" Weight 337.00 lb Weight in kg's 152.863 Respiratory Rate 16 /min Heart Rate 74 /min O2 % BldC Oximetry 98 % BP Systolic 113 mmHg BP Diastolic 71 mmHg Asthma Control Test 15 BMI (Body Mass Index) 47.0 kg/m2 03/18/2015 Height 71 inches 5'11" Weight 337.00 lb Weight in kg's 152.863 Respiratory Rate 16 /min Heart Rate 74 /min O2 % BldC Oximetry 97 % BP Systolic 122 mmHg BP Diastolic 78 mmHg Asthma Control Test 16 BMI (Body Mass Index) 47.0 kg/m2 01/30/2015 Height 71 inches 5'11" Weight 337.00 lb pt stated Weight in kg's 152.863 Respiratory Rate 20 /min Heart Rate 75 /min O2 % BldC Oximetry 98 % BP Systolic 115 mmHg BP Diastolic 72 mmHg Asthma Control Test 21 BMI (Body Mass Index) 47.0 kg/m2 10/31/2014 Height 71 inches 5'11" Weight 330.00 lb Weight in kg's 149.688 Respiratory Rate 18 /min Heart Rate 80 /min O2 % BldC Oximetry 97 % BP Systolic 128 mmHg BP Diastolic 78 mmHg BMI (Body Mass Index) 46.0 kg/m2 10/17/2014 Height 71 inches 5'11" Weight 330.00 lb Weight in kg's 149.688 Respiratory Rate 17 /min Heart Rate 77 /min O2 % BldC Oximetry 97 % Asthma Control Test 18 BMI (Body Mass Index) 46.0 kg/m2 09/19/2014 Height 71 inches 5'11" Weight 330.00 lb Weight in kg's 149.688 Respiratory Rate 18 /min Heart Rate 80 /min O2 % BldC Oximetry 98 % BP Systolic 120 mmHg BP Diastolic 80 mmHg BMI (Body Mass Index) 46.0 kg/m2 09/05/2014 Height 71 inches 5'11" Weight 330.00 lb Weight in kg's 149.688 Respiratory Rate 20 /min Heart Rate 78 /min O2 % BldC Oximetry 98 % BP Systolic 128 mmHg BP Diastolic 78 mmHg BMI (Body Mass Index) 46.0 kg/m2 08/06/2014 Height 71 inches 5'11" Weight 330.00 lb Weight in kg's 149.688 Respiratory Rate 16 /min Heart Rate 105 /min Body Temperature 97.6 F O2 % BldC Oximetry 96 % BP Systolic 132 mmHg BP Diastolic 82 mmHg Asthma Control Test 15 BMI (Body Mass Index) 46.0 kg/m2 03/19/2014 Height 71 inches 5'11" Weight 333.00 lb Weight in kg's 151.049 Respiratory Rate 16 /min Heart Rate 88 /min O2 % BldC Oximetry 97 % BP Systolic 120 mmHg BP Diastolic 84 mmHg Asthma Control Test 7 BMI (Body Mass Index) 46.4 kg/m2 08/21/2013 Height 73 inches 6'1" Weight 328.00 lb Weight in kg's 148.781 Respiratory Rate 16 /min Heart Rate 81 /min O2 % BldC Oximetry 97 % BP Systolic 134 mmHg BP Diastolic 84 mmHg Asthma Control Test 22 BMI (Body Mass Index) 43.3 kg/m2 08/03/2012 Respiratory Rate 16 /min Heart Rate 72 /min 07/18/2012 Respiratory Rate 16 /min Heart Rate 72 /min 06/27/2012 Respiratory Rate 16 /min Heart Rate 92 /min Results Description No Information Procedures Date CPT Code Description Status 02/23/2018 98142 Xolair Completed 02/23/2018 14542 Pre PFT Completed 01/18/2018 08166 Xolair Completed 01/18/2018 98076 Xolair Completed 12/21/2017 22965 Xolair Completed 12/21/2017 77311 Xolair Completed 11/23/2017 08369 Xolair Completed 10/26/2017 20501 Xolair Completed 10/26/2017 35356 Xolair Completed 09/28/2017 99685 Xolair Completed 08/25/2017 60157 Xolair Completed 07/27/2017 56557 Xolair Completed 06/22/2017 49379 Xolair Completed 05/18/2017 87001 Xolair Completed 04/20/2017 90037 Xolair Completed 04/20/2017 63701 Xolair Completed 03/16/2017 52319 Xolair Completed 02/09/2017 40907 Xolair Completed 01/13/2017 27703 Xolair Completed 12/16/2016 10226 Xolair Completed 11/18/2016 12540 Xolair Completed 10/21/2016 29346 Xolair Completed 09/29/2016 67985 Ippb Completed 09/29/2016 71923 Pre PFT Completed 09/21/2016 79490 Xolair Completed 08/26/2016 94277 Xolair Completed 07/29/2016 91744 Xolair Completed 06/30/2016 56227 Xolair Completed 06/02/2016 21877 Xolair Completed 04/28/2016 91176 Xolair Completed 03/30/2016 97621 Xolair Completed 02/19/2016 97212 Pre PFT Completed 02/19/2016 72680 Xolair Completed 01/22/2016 94705 Xolair Completed 12/23/2015 58152 Xolair Completed 11/25/2015 78224 Xolair Completed 10/20/2015 23757 Xolair Completed 09/22/2015 40624 Xolair Completed 08/25/2015 99794 Xolair Completed 08/25/2015 17032 Pre PFT Completed 07/24/2015 48547 Xolair Completed 06/17/2015 17660 Xolair Completed 05/22/2015 12546 Xolair Completed 04/22/2015 02716 Xolair Completed 03/25/2015 73098 Ippb Completed 03/18/2015 94179 Pre PFT Completed 01/30/2015 98550 Pre PFT Completed 09/19/2014 57951 Pulmonary Function Test Completed 09/19/2014 17161 Pulmonary Function Test Completed 09/05/2014 89291 Ippb Completed 03/19/2014 40946 Pre PFT Completed 08/21/2013 86350 Pre PFT Completed 07/18/2012 66882 Pre PFT Completed 06/27/2012 87383 Pulmonary Function Test Completed 03/07/2012 84260 Oxygen Level - Pulse Oximiter Completed 03/07/2012 11694 Pulmonary Function Test Completed 12/28/2011 43637 Oxygen Level - Pulse Oximiter Completed 12/28/2011 90510 Ippb Completed 01/26/2011 30832 Injection Completed 01/12/2011 31470 Injection Completed 12/22/2010 79768 Injection Completed 12/15/2010 82423 Injection Completed 12/08/2010 06719 Injection Completed 12/03/2010 16672 Injection Completed 11/19/2010 14420 Extract 1-10 Completed 11/17/2010 12780 Injection Completed 09/08/2010 22836 Injection Completed 08/25/2010 68414 Injection Completed 08/04/2010 52169 Injection Completed 07/21/2010 82999 Injection Completed 07/07/2010 16019 Injection Completed 06/16/2010 59853 Injection Completed 06/04/2010 90398 Injection Completed 05/05/2010 35934 Injection Completed 04/28/2010 69255 Injection Completed 04/23/2010 40430 Extract 1-10 Completed 04/21/2010 60470 Injection Completed 04/14/2010 93823 Injection Completed 04/07/2010 51579 Injection Completed 03/31/2010 27580 Injection Completed 03/24/2010 47389 Injection Completed 03/17/2010 58766 Injection Completed 03/10/2010 04532 Injection Completed 03/03/2010 04175 Injection Completed 02/24/2010 10949 Injection Completed 02/17/2010 23644 Injection Completed 02/12/2010 45253 Extract 1-10 Completed 02/10/2010 15749 Injection Completed 02/03/2010 83974 Injection Completed 01/27/2010 80488 Injection Completed 01/27/2010 31967 Ippb Completed 01/27/2010 05921 Pulmonary Function Test Completed 01/22/2010 89601 Injection Completed 01/06/2010 93411 Injection Completed 12/30/2009 19562 Injection Completed 12/18/2009 78061 Pre PFT Completed 12/16/2009 69605 Injection Completed 12/09/2009 56563 Injection Completed 12/02/2009 26787 Injection Completed 11/25/2009 94445 Injection Completed 11/20/2009 29442 Extract 1-10 Completed 11/18/2009 21896 Injection Completed 11/11/2009 70941 Injection Completed 11/04/2009 70171 Injection Completed 10/28/2009 88507 Injection Completed 10/21/2009 31254 Injection Completed 10/14/2009 67762 Injection Completed 10/07/2009 26714 Injection Completed 09/30/2009 43850 Injection Completed 09/23/2009 97082 Injection Completed 08/28/2009 94400 Injection Completed 08/19/2009 65448 Injection Completed 08/12/2009 12640 Injection Completed 04/08/2009 06784 Injection Completed 03/25/2009 59495 Injection Completed 03/11/2009 10179 Injection Completed 03/06/2009 23076 Extract 1-10 Completed 02/25/2009 31699 Injection Completed 02/11/2009 47917 Injection Completed 01/16/2009 45489 Injection Completed 01/07/2009 50109 Pulmonary Function Test Completed 12/31/2008 43914 Injection Completed 12/17/2008 16365 Injection Completed 12/03/2008 77281 Injection Completed 11/19/2008 11359 Injection Completed 11/05/2008 89235 Injection Completed 10/08/2008 91262 Injection Completed 09/24/2008 04222 Injection Completed 05/16/2008 36426 Extract 1-10 Completed 05/07/2008 42581 Injection Completed 04/23/2008 24895 Injection Completed 04/09/2008 11597 Injection Completed 03/26/2008 51432 Injection Completed 03/12/2008 67138 Injection Completed 01/23/2008 54076 Injection Completed 12/05/2007 33022 Injection Completed 11/23/2007 37436 Injection Completed 11/09/2007 55307 Injection Completed 08/07/2007 58870 Extract 1-10 Completed 07/18/2007 57461 Injection Completed 06/06/2007 96128 Injection Completed 05/23/2007 85934 Injection Completed 05/04/2007 87488 Injection Completed 04/11/2007 70684 Injection Completed 03/21/2007 04945 Injection Completed 02/21/2007 99271 Injection Completed 01/31/2007 79849 Injection Completed 01/17/2007 80446 Injection Completed 01/03/2007 26006 Injection Completed 12/01/2006 95875 Extract 1-10 Completed 11/22/2006 77458 Injection Completed 11/08/2006 53174 Injection Completed 11/01/2006 91262 Pulmonary Function Test Completed 10/25/2006 86844 Injection Completed 10/11/2006 52953 Injection Completed 09/27/2006 89834 Injection Completed 09/13/2006 58087 Injection Completed 08/30/2006 31185 Injection Completed 08/16/2006 21375 Injection Completed 08/02/2006 55855 Injection Completed 07/19/2006 99716 Injection Completed 07/07/2006 12115 Extract 1-10 Completed 06/28/2006 56882 Injection Completed 06/07/2006 31141 Injection Completed 05/24/2006 14257 Injection Completed 05/10/2006 12464 Injection Completed 04/26/2006 79496 Injection Completed 04/12/2006 76230 Injection Completed 03/22/2006 37253 Injection Completed 03/01/2006 07748 Injection Completed 02/22/2006 00491 Pulmonary Function Test Completed 02/15/2006 60676 Injection Completed 02/03/2006 12176 Injection Completed 01/27/2006 20393 Extract 1-10 Completed 01/18/2006 74869 Injection Completed 01/04/2006 68079 Injection Completed 12/23/2005 90037 Injection Completed 12/07/2005 57064 Injection Completed 11/23/2005 91862 Injection Completed 11/02/2005 95484 Injection Completed 10/19/2005 72617 Injection Completed 10/05/2005 85440 Injection Completed 09/23/2005 44003 Injection Completed 09/07/2005 88228 Injection Completed 09/02/2005 35051 Extract 1-10 Completed 08/24/2005 96692 Injection Completed 08/10/2005 72775 Injection Completed 07/27/2005 27510 Injection Completed 07/13/2005 45229 Injection Completed 07/01/2005 79032 Pulmonary Function Test Completed 06/15/2005 46938 Injection Completed 06/01/2005 15173 Injection Completed 05/18/2005 64551 Injection Completed 05/06/2005 78331 Injection Completed 04/20/2005 69610 Injection Completed 04/08/2005 87690 Injection Completed 03/11/2005 64290 Extract 1-10 Completed 03/04/2005 74334 Injection Completed 02/16/2005 60013 Injection Completed 02/02/2005 97477 Injection Completed 01/19/2005 23449 Injection Completed 01/05/2005 35481 Injection Completed 12/24/2004 04758 Injection Completed 12/10/2004 88473 Injection Completed 11/24/2004 05964 Injection Completed 11/10/2004 41853 Injection Completed 10/27/2004 24614 Injection Completed 10/22/2004 46357 Extract 1-10 Completed 09/29/2004 34694 Injection Completed 09/01/2004 02245 Injection Completed 08/06/2004 93988 Injection Completed 07/07/2004 45180 Injection Completed 06/09/2004 48563 Injection Completed 05/12/2004 13353 Injection Completed 04/28/2004 74383 Injection Completed 04/14/2004 78196 Injection Completed 03/31/2004 51508 Injection Completed 03/17/2004 30817 Injection Completed 03/12/2004 20629 Extract 1-10 Completed 03/03/2004 16863 Injection Completed 02/18/2004 32928 Injection Completed 02/04/2004 53741 Injection Completed 01/21/2004 33839 Injection Completed 01/07/2004 58408 Injection Completed 12/24/2003 80233 Injection Completed 12/10/2003 83770 Injection Completed 11/26/2003 49581 Injection Completed 11/12/2003 45866 Injection Completed 10/29/2003 04411 Injection Completed 10/24/2003 70047 Extract 1-10 Completed 10/15/2003 38500 Injection Completed 10/10/2003 94245 Pulmonary Function Test Completed 10/01/2003 62159 Injection Completed 09/17/2003 21178 Injection Completed 09/03/2003 09205 Injection Completed 08/20/2003 85614 Injection Completed 08/06/2003 93490 Injection Completed 07/23/2003 38132 Injection Completed 07/09/2003 03502 Injection Completed 06/25/2003 32509 Injection Completed 06/18/2003 20645 Injection Completed 06/13/2003 87692 Extract 1-10 Completed 06/11/2003 34192 Injection Completed 06/04/2003 07665 Injection Completed 05/28/2003 52893 Injection Completed 05/21/2003 22439 Injection Completed 05/14/2003 68154 Injection Completed 05/07/2003 75274 Injection Completed 04/30/2003 00819 Injection Completed 04/23/2003 46377 Injection Completed 04/16/2003 63152 Injection Completed 04/09/2003 92547 Injection Completed 04/02/2003 17538 Injection Completed 03/26/2003 91625 Injection Completed 03/19/2003 91984 Injection Completed 03/05/2003 78214 Injection Completed 02/28/2003 58579 Extract 1-10 Completed 02/26/2003 59246 Injection Completed 02/19/2003 59258 Injection Completed Encounters Type Date Location Provider CPT E/M Dx Office Visit 09/29/2016 2:40p [facility] Marilynn Art, [address] J45.50 [facility] J45.51 J11.1 J30.89 J30.1 J30.81 J30.2 Z68.41 Office Visit 04/07/2016 1:20p [facility] Debbie Harry [facility] 46849 Z68.42 J45.51 J01.00 J30.1 J30.81 J30.89 Office Visit 03/11/2016 2:00p [facility] Debbie Harry [facility] 42379 Z68.42 Z23 J01.00 J45.51 J30.1 J30.81 J30.89 J30.2 Office Visit 10/06/2015 11:40a [facility] Trina Lockhart [facility] [address]494 L50.0 Z23 Z68.42 Office Visit 06/19/2015 3:40p [facility] Trina Lockhart [facility] [address] J45.51 J06.9 Z23 Z68.42 Office Visit 04/17/2015 2:20p [facility] Trina Lockhart [facility] [address] 493.00 V04.81 V85.42 Office Visit 04/10/2015 8:40a [facility] Trina Lockhart [facility] [address]383 493.00 493.92 465.8 V85.42 Office Visit 04/01/2015 2:20p [facility] Trina Lockhart [facility] [address]83 493.00 V85.42 Office Visit 03/25/2015 3:40p [facility] Trina Lockhart [facility] [address] 493.00 465.8 493.92 V85.42 V04.81 Office Visit 03/18/2015 3:40p [facility] Trina Lockhart [facility] 26068 493.92 V04.81 V85.42 Office Visit 01/30/2015 3:40p [facility] Trina Lockhart [facility] [address]6951 493.00 477.0 477.8 V85.42 V04.81 Office Visit 10/31/2014 9:20a [facility] Lynn Lunsford, 80143 493.00 PH.D, RPA-C 465.8 493.92 477.0 477.8 Office Visit 10/17/2014 3:20p [facility] Lynn Lunsford, 86487 493.00 PH.D, RPA-C 465.8 493.92 477.0 477.8 Office Visit 09/19/2014 9:20a [facility] Lynn Lunsford, 75013 493.00 PH.D, RPA-C 465.8 493.92 477.0 477.8 Office Visit 09/05/2014 9:00a [facility] Lynn Mossjamesstacey, 67295 493.00 PH.D, RPA-C 465.8 493.92 477.0 477.8 Office Visit 08/06/2014 2:00p [facility] Trina Lockhart [facility] 71373 493.00 465.8 493.92 Office Visit 03/19/2014 10:00a [facility] Trina Lockhart [facility] [address]326 477.0 493.00 477.8 465.8 Office Visit 08/21/2013 9:20a [facility] Trina Chantelle [facility] 22986 477.0 493.00 477.8 Office Visit 08/03/2012 4:00p [facility] MITCHELL Guzman 87080 477.0 493.00 465.8 786.2 Office Visit 06/27/2012 2:20p [facility] MITCHELL Guzman 45567 493.00 477.0 Office Visit 01/28/2009 4:45p [facility] Glenn David M.D. 54135 477.0 477.8 Office Visit 01/21/2009 1:45p [facility] Andrés Coronado M.D. 96752 477.0 477.8 Office Visit 10/22/2008 5:15p [facility] Andrés Coronado M.D. 84254 477.0 477.8 Office Visit 03/14/2007 5:15p [facility] Andrés Coronado M.D. 49531 477.0 477.8 Office Visit 03/07/2007 5:30p [facility] Glenn David M.D. 69516 477.0 477.8 Office Visit 12/06/2006 4:00p [facility] Glenn David M.D. 06312 477.0 477.8 Office Visit 07/09/2003 4:45p [facility] Glenn David M.D. 69008 477.0 477.8 Plan of Care Future Appointment(s):03/23/2018 4:00 pm - [facility] [id number]/23/2018 - B[facility]IF[facility]IO [facility]-CJ45.50 Severe persistent asthma, hxddyrclptgckF34.89 Other allergic uoshqfjbJ83.1 Allergic rhinitis due to tvxmmjO43.81 Allergic rhinitis due to animal (cat) (dog) hair and plyueqX34.38 Body mass index (BMI) 38.0-38.9, adultFollow up:follow up 1 month for Xolair injRecommendations:Continue all medications as prescribed. Refrain from wearing perfumes/scented colognes while visiting our office. Continue Diet management post Rouen-Y gastric Bypass for obesity Continue : cetirizine 10 mg daily AuviQ 0.3 mg per instruction Xopenex HFA 2 puffs q 4-6 hrs as needed Please call if consistently using rescue inhaler > 2 times per week. Ipratropium [place]/ Albuterol via nebulizer as needed Symbicort 160-4.5 mcg 2 puffs twice a day Montelukast 10mg daily fluticasone 1 squirt each nostril twice a day Pantoprazole 40mg daily Dymista 137-50 mcg2 squirt each nostril daily Use all inhalers with the spacer (aerochamber). If your spacer is new, prior to the first use take your rescue inhaler and puff it 10 times into the device and set aside for 5-10 minutes. The inside of the spacer needs to be coated with medication. You will only need to do this when the spacer is new and after washing it (2-3 times/year). Discussed environmental controls. Xolair inj today
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
[2018-03-08 20:39] VITALS: BP 122/75
--- NOTE | 2018-03-08 20:59 | UC ---
Throat Pain/Nasal Nathan HPI - HPI Summary HPI Summary: Pt c/o sudden onset of sore throat, fatigue and malaise X 3 days. - History of Current Complaint Chief Complaint: UCRespiratory Stated Complaint: SORE THROAT Time Seen by Provider: 03/08/18 20:49 Hx Obtained From: Patient Hx Last Menstrual Period: 02/22/18 ?: No Onset/Duration: Sudden Onset, Lasting Days Severity: Moderate Pain Intensity: 6 Cough: None Associated Signs & Symptoms: Positive: Dysphagia - Epiglottits Risk Factors Epiglottis Risk Factors: Negative - Allergies/Home Medications Allergies/Adverse Reactions: Allergies Allergy/AdvReac Type Severity Reaction Status Date / Time bees Allergy Swelling Uncoded 03/08/18 20:29 Of Face,Lips,& Throat Home Medications: Home Medications Albuterol HFA INHALER* [Ventolin HFA Inhaler*] 1 puff Q6HR PRN 03/08/18 [ History Confirmed 03/08/18] Budesonide/Formote 160/4.5(NF) [Symbicort 160/4.5 (NF)] 2 puff BID 03/08/18 [ History Confirmed 03/08/18] Cetirizine* [ZyrTEC 10 MG TAB*] 10 mg QAM 03/08/18 [History Confirmed 03/08/18] FLUoxetine CAP* [Prozac CAP*] 60 mg DAILY 03/08/18 [History Confirmed 03/08/18] L.acidoph,Paracasei, B.lactis [Probiotic] 1 cap DAILY 03/08/18 [History Confirmed 03/08/18] Levothyroxine TAB* [Synthroid TAB*] 125 mcg PO DAILY 03/08/18 [History Confirmed 03/08/18] Multivitamin [Multivitamins] 1 cap DAILY 03/08/18 [History Confirmed 03/08/18] Rabeprazole (NF) [Aciphex (NF)] 1 cap DAILY 03/08/18 [History Confirmed 03/08/18 ] PMH/Surg Hx/FS Hx/Imm Hx Previously Healthy: Yes Respiratory History: Asthma Psychological History: Anxiety Other History Of: Negative For: HIV, Hepatitis B, Hepatitis C, Anticoagulant Therapy - Surgical History Surgical History: Yes Surgery Procedure, Year, and Place: , 2013, [facility]. Endoscopy, 1996, [facility]. T&A, 1990. weight loss surgery 09/01/16. lap luca 11/14/16 - Family History Known Family History: Positive: Cardiac Disease, Hypertension - Social History Occupation: Employed Full-time Lives: With Family Alcohol Use: None Substance Use Type: None Smoking Status (MU): Former Smoker Have You Smoked in the Last Year: No When Did the Patient Quit Smoking/Using Tobacco: 1999 - Immunization History Most Recent Influenza Vaccination: September 2013 Most Recent Tetanus Shot: UTD Review of Systems Constitutional: Chills, Fatigue Skin: Negative Eyes: Negative ENT: Sore Throat Respiratory: Negative Cardiovascular: Negative Gastrointestinal: Negative Genitourinary: Negative Motor: Negative Neurovascular: Negative Musculoskeletal: Myalgia Neurological: Negative Psychological: Negative Is Patient Immunocompromised?: No All Other Systems Reviewed And Are Negative: Yes Physical Exam Triage Information Reviewed: Yes Appearance: Ill-Appearing Vital Signs: Initial Vital Signs Temp 97.6 F 03/08/18 20:32 Pulse 61 03/08/18 20:32 Resp 16 03/08/18 20:32 BP 122/75 03/08/18 20:32 Pulse Ox 100 03/08/18 20:32 Vital Signs Reviewed: Yes Eye Exam: Normal ENT Exam: Other ENT: Positive: Pharyngeal erythema, Nasal congestion Dental Exam: Normal Neck exam: Normal Respiratory Exam: Normal Cardiovascular Exam: Normal Musculoskeletal Exam: Normal Neurological Exam: Normal Psychological Exam: Normal Skin Exam: Normal Throat Pain/Nasal Course/Dx - Differential Dx/Diagnosis Differential Diagnosis/HQI/PQRI: Pharyngitis, Tonsillitis, URI Provider Diagnoses: viral syndrome Discharge - Sign-Out/Discharge Documenting (check all that apply): Patient Departure - Discharge Plan Condition: Stable Disposition: HOME Patient Education Materials: Viral Syndrome (ED) Referrals: Evita Sneed MD [Primary Care Provider] - If Needed Additional Instructions: Per institutional requirements, I have reviewed the chart, however, I was not consulted specifically or made aware of this patient by the above midlevel provider. I did not personally evaluate, interact with , or disposition this patient. - Billing Disposition and Condition Condition: STABLE Disposition: Home
== END 2018-03-08 21:03 | disposition home or self-care (01) ==
LOC: UCCORT 20:10
DX: B34.9 Viral infection, unspecified (principal); J45.909 Unspecified asthma, uncomplicated; F41.9 Anxiety disorder, unspecified; Z87.891 Personal history of nicotine dependence
CPT/HCPCS: 87651; 99212; G0463

== ENCOUNTER 2019-05-13 18:39 | Emergency (ER) | payer BC ==
--- OUTSIDE RECORDS SUMMARY | 2019-05-13 18:55 | XMS REPORT | Continuity of Care Document ---
:1975 External Reference #:[id number] Author Name MITCHELL Romero Address [address] [place] [address] Problems Active Problems Provider Date Allergic rhinitis due to pollen MICHAEL Brewer Onset: 08/21/2013 Allergic asthma without status MICHAEL Brewer Onset: 08/21/2013 asthmaticus Allergic rhinitis MICHAEL Brewer Onset: 08/21/2013 Acute upper respiratory infection of MICHAEL Brewer Onset: 03/19/2014 multiple sites Exacerbation of asthma MICHAEL Brewer Onset: 08/06/2014 Cough MICHAEL Brewer Onset: 04/10/2015 Body mass index 40+ - severely obese MICHAEL Brewer Onset: 05/22/2015 Uncomplicated severe persistent MICHAEL Brewer Onset: 05/22/2015 asthma Immunization MICHAEL Brewer Onset: 06/19/2015 Severe persistent asthma with (acute) MICHAEL Brewer Onset: 2014 exacerbation Allergic urticaria MICHAEL Brewer Onset: 10/06/2015 Allergic rhinitis due to animals MITCHELL Patricia Onset: 2016 Uncomplicated severe persistent OctaviaMITCHELL Cano Onset: 10/21/2016 asthma Body mass index 30+ - obesity Isaías Crowley M.D. Onset: 01/13/2017 Social History Type Date Description Comments Sex Unknown ETOH Use Denies alcohol use Tobacco Use Start: Unknown Patient has never smoked Recreational Drug Use Denies Drug Use Smoking Status Reviewed: 07/27/17 Patient has never smoked Allergies, Adverse Reactions, Alerts Active Allergies Reaction Severity Comments Date Latex hives 05/01/2019 Medications Active Medications SIG Qnty Indications Ordering Provider Date Symbicort inhale two puffs 30.6gm Brandee Wrightmond, 04/05/2019 by mouth two DEVELOPMENT PLANNER-C 160-4.5mcg/Act times a day Aerosol Spiriva Respimat 2 puffs once 4gm Brandee Armando, 04/05/2019 daily DEVELOPMENT PLANNER-C 1.25mcg/Act Aerosol Xolair inject 300mg 2ml Millaguilherme Selby, 11/07/2018 150mg/ml Soln every 4 weeks DEVELOPMENT PLANNER-C Prefill Syringe Azelastine HCL 1 spray each 90ml Milla Nailadrkari, 04/27/2018 (Nasal) nostril twice DEVELOPMENT PLANNER-C 0.15% daily as needed Solution for nasal congestion/stuff iness Auvi-Q use as directed. 3-2packs J45.50 Shaila Sellers, 09/21/2016 0.3mg/0.3ML im. DEVELOPMENT PLANNER-C Solution Auto-Inject Cetirizine HCL 1 by mouth every 30tabs J45.50 Octavia Herndon, 08/26/2016 10mg day DEVELOPMENT PLANNER-C Tablets J30.81 J45.50 Xopenex HFA 2 puffs q4-6 1inhaler J45.50 Inna PoloRPA-C 06/02/2016 45mcg/Act hours as needed Aerosol for sob, cough, wheeze Ipratropium 1 vial via 1box Angel45Reagan Crowley M.D. 03/25/2015 Penuelas/Albuterol nebulizer every 6 Sulfate hours as needed. 0.5-2.5(3)mg/3ML Solution Levalbuterol HCL use via nebulizer 1box Ghislaine Barcenas, 03/21/2015 every 4 -6 hours M.DSae 1.25mg/3ML Nebulizer prnr shortness of breath, cough or wheezing Albuterol Sulfate #1 via nebulizer 1Box Terese Crowley M.D. 2014 every 4-6 hours (2.5mg/3ML) 0.083% as needed for Nebulizer cough, shortness of breath and wheezing Montelukast Sodium 1 tablet by mouth 90tabs BONIFACIO Hays-C 2012 10mg every evening Tablets Synthroid every other day Unknown 150mcg Tablets Fluticasone 1 squirt each 48gm J45.50 Milla eSlby, Propionate nostril daily DEVELOPMENT PLANNER-C 50mcg/Act Suspension Multivitamin Women once a day Unknown Tablets Fluoxetine HCL take 3 tablets by Unknown 20mg mouth daily Tablets Rabeprazole Sodium once a day Unknown 20mg Tablets DR Topiramate twice daily Unknown 25mg Tablets Medications Administered in Office Medication SIG Qnty Indications Ordering Provider Date Biologic Agent BONIFACIO Romero-C 05/01/2019 Administration Injection Biologic Agent BONIFACIO Hays-C 04/05/2019 Administration Injection Biologic Agent BONIFACIO Romero-C 03/07/2019 Administration Injection Biologic Agent Isaías Crowley M.D. 02/08/2019 Administration Injection Biologic Agent BONIFACIO Hays-C 01/11/2019 Administration Injection Biologic Agent BONIFACIO Hays-C 12/07/2018 Administration Injection Biologic Agent BONIFACIO Romero-C 11/07/2018 Administration Injection Biologic Agent BONIFACIO Hays-C 10/12/2018 Administration Injection Biologic Agent BONIFACIO Romero-C 09/13/2018 Administration Injection Biologic Agent BONIFACIO Hays-C 08/17/2018 Administration Injection Biologic Agent BONIFACIO Hays-C 07/20/2018 Administration Injection Biologic Agent Ghislaine Barcenas M.D. 06/20/2018 Administration Injection Biologic Agent Isaías Crowley M.D. 05/25/2018 Administration Injection Biologic Agent Quinn Kirkpatrick M.D. 04/27/2018 Administration Injection Biologic Agent MITCHELL Hays 04/27/2018 Administration Injection Biologic Agent Quinn Kirkpatrick M.D. 03/30/2018 Administration Injection Biologic Agent BONIFACIO Hays-C 03/30/2018 Administration Injection Biologic Agent Isaías Crowley M.D. 02/23/2018 Administration Injection Biologic Agent Brandee Roberts DEVELOPMENT PLANNER-C 02/23/2018 Administration Injection Biologic Agent Quinn Kirkpatrick M.D. 01/18/2018 Administration Injection Biologic Agent Milla Selby, DEVELOPMENT PLANNER-C 01/18/2018 Administration Injection Biologic Agent Quinn Kirkpatrick M.D. 12/21/2017 Administration Injection Biologic Agent Milla Ulalex, DEVELOPMENT PLANNER-C 12/21/2017 Administration Injection Biologic Agent Millaguilherme Selby, DEVELOPMENT PLANNER-C 11/23/2017 Administration Injection Biologic Agent Quinn Kirkpatrick M.D. 10/26/2017 Administration Injection Biologic Agent Milladaljit Selby, DEVELOPMENT PLANNER-C 10/26/2017 Administration Injection Biologic Agent Peter Winters M.D. 09/28/2017 Administration Injection Biologic Agent Octavia Herndon, DEVELOPMENT PLANNER-C 08/25/2017 Administration Injection Biologic Agent Quinn Kirkpatrick M.D. 07/27/2017 Administration Injection Biologic Agent Quinn Kirkpatrick M.D. 06/22/2017 Administration Injection Biologic Agent Milladaljit Selby, DEVELOPMENT PLANNER-C 05/18/2017 Administration Injection Biologic Agent Quinn Kirkpatrick M.D. 04/20/2017 Administration Injection Biologic Agent Millaluna Selby, DEVELOPMENT PLANNER-C 04/20/2017 Administration Injection Biologic Agent Millaluna Selby, DEVELOPMENT PLANNER-C 03/16/2017 Administration Injection Biologic Agent Marilynn Art, 02/09/2017 Administration DEVELOPMENT PLANNER-C Injection Biologic Agent Isaías Crowley M.D. 01/13/2017 Administration Injection Biologic Agent Octaviawalter Herndon, DEVELOPMENT PLANNER-C 12/16/2016 Administration Injection Biologic Agent Octaviawalter Herndon, DEVELOPMENT PLANNER-C 11/18/2016 Administration Injection Biologic Agent Octaviawatler Herndon, DEVELOPMENT PLANNER-C 10/21/2016 Administration Injection Biologic Agent Shaila Sellers, DEVELOPMENT PLANNER-C 09/21/2016 Administration Injection Biologic Agent Octavia Yanick, DEVELOPMENT PLANNER-C 08/26/2016 Administration Injection Biologic Agent Isaías Crowley M.D. 07/29/2016 Administration Injection Biologic Agent Quinn Kirkpatrick M.D. 06/30/2016 Administration Injection Biologic Agent Quinn Kirkpatrick M.D. 06/02/2016 Administration Injection Biologic Agent Debbie Harry, [facility] 04/28/2016 Administration Injection Biologic Agent Shaila Dussing, [facility] 03/30/2016 Administration Injection Biologic Agent Trina Chantelle, [facility] 02/19/2016 Administration Injection Biologic Agent Trina Chantelle, [facility] 01/22/2016 Administration Injection Biologic Agent Shaila Dussing, [facility] 12/23/2015 Administration Injection Biologic Agent Shaila Dussing, [facility] 11/25/2015 Administration Injection Biologic Agent Trina Chantelle, [facility] 10/20/2015 Administration Injection Biologic Agent Tr[facility] Chantelle, [facility] 09/22/2015 Administration Injection Biologic Agent Trina Lockhart, [facility] 08/25/2015 Administration Injection Biologic Agent Shaila Dussing, [facility] 07/24/2015 Administration Injection Biologic Agent Shaila Dussing, [facility] 06/17/2015 Administration Injection Biologic Agent Trina Chantelle, [facility] 05/22/2015 Administration Injection Biologic Agent Trina Lockhart, [facility] 04/22/2015 Administration Injection Injection Glenn David M.D. 01/26/2011 Injection Injection Glenn David M.D. 01/12/2011 Injection Injection Glenn David M.D. 12/22/2010 Injection Injection Glenn David M.D. 12/15/2010 Injection Injection Glenn David M.D. 12/08/2010 Injection Injection Glenn David M.D. 12/03/2010 Injection Injection Glenn David M.D. 11/17/2010 Injection Injection Glenn David M.D. 09/08/2010 Injection Injection Glenn David M.D. 08/25/2010 Injection Injection Glenn David M.D. 08/04/2010 Injection Injection Glenn David M.D. 07/21/2010 Injection Injection Glenn Frankie, M.DSae 07/07/2010 Injection Injection Glenn Frankie, M.DSae 06/16/2010 Injection Injection Glenn Frankie, M.DSae 06/04/2010 Injection Injection Glenn Frankie, M.D. 05/05/2010 Injection Injection Glenn Frankie, M.DSae 04/28/2010 Injection Injection Glenn Frankie, M.DSae 04/21/2010 Injection Injection Glenn Frankie, M.DSae 04/14/2010 Injection Injection Glenn Frankie, M.DSae 04/07/2010 Injection Injection Glenn Frankie, M.DSae 03/31/2010 Injection Injection Glenn Frankie, M.DSae 03/24/2010 Injection Injection Glenn Frankie, M.DSae 03/17/2010 Injection Injection Glenn Frankie, M.DSae 03/10/2010 Injection Injection Glenn Frankie, M.DSae 03/03/2010 Injection Injection Glenn Frankie, M.DSae 02/24/2010 Injection Injection Glenn Frankie, M.DSae 02/17/2010 Injection Injection Glenn Frankie, M.DSae 02/10/2010 Injection Injection Glenn Frankie, M.DSae 02/03/2010 Injection Injection Glenn Frankie, M.DSae 01/27/2010 Injection Injection Glenn Frankie, M.DSae 01/22/2010 Injection Injection Glenn Frankie, M.DSae 01/06/2010 Injection Injection Glenn Frankie, M.DSae 12/30/2009 Injection Injection Glenn Frankie, M.DSae 12/16/2009 Injection Injection Glenn Frankie, M.DSae 12/09/2009 Injection Injection Glenn Frankie, M.DSae 12/02/2009 Injection Injection Glenn Frankie, M.DSae 11/25/2009 Injection Injection Glenn Frankie, M.DSae 11/18/2009 Injection Injection Glenn Frankie, M.DSae 11/11/2009 Injection Injection Glenn Frankie, M.DSae 11/04/2009 Injection Injection Glenn Frankie, M.DSae 10/28/2009 Injection Injection Glenn Frankie, M.DSae 10/21/2009 Injection Injection Glenn Frankie, Viviana 10/14/2009 Injection Injection Glenn Frankie, Viviana 10/07/2009 Injection Injection Glenn Frankie, Viviana 09/30/2009 Injection Injection Glenn Frankie, Viviana 09/23/2009 Injection Injection Hayes SantiagoSae Goss, 08/28/2009 Injection M.DSae Injection Ghislaine Barcenas, Viviana 08/19/2009 Injection Injection Ghislaine Barcenas, Viviana 08/12/2009 Injection Injection Glenn Frankie, Viviana 04/08/2009 Injection Injection Glenn Frankie, Viviana 03/25/2009 Injection Injection Glenn Frankie, Viviana 03/11/2009 Injection Injection Glenn Frankie, Viviana 02/25/2009 Injection Injection Glenn Frankie, Viviana 02/11/2009 Injection Injection Glenn Frankie, Viviana 01/16/2009 Injection Injection Glenn Frankie, Viviana 12/31/2008 Injection Injection Glenn Frankie, Viviana 12/17/2008 Injection Injection Glenn Frankie, Viviana 12/03/2008 Injection Injection Andrés Coronado, Viviana 11/19/2008 Injection Injection Glenn Frankie, Viviana 11/05/2008 Injection Injection Glenn Frankie, GayeDSae 10/08/2008 Injection Injection Glenn Frankie, Viviana 09/24/2008 Injection Injection Glenn Frankie, Viviana 05/07/2008 Injection Injection Glenn Frankie, GayeDSae 04/23/2008 Injection Injection Glenn Frankie, GayeDSae 04/09/2008 Injection Injection Glenn Frankie, Viviana 03/26/2008 Injection Injection Glenn Frankie, Vviiana 03/12/2008 Injection Injection Glenn Frankie, MSaeDSae 01/23/2008 Injection Injection Glenn Frankie, GayeDSae 12/05/2007 Injection Injection Glenn Frankie, Viviana 11/23/2007 Injection Injection Glenn Frankie, Viviana 11/09/2007 Injection Injection Glenn Frankie, M.DSae 07/18/2007 Injection Injection Glenn Frankie, M.DSae 06/06/2007 Injection Injection Glenn Frankie, M.DSae 05/23/2007 Injection Injection Glenn Frankie, M.DSae 05/04/2007 Injection Injection Glenn Frankie, M.DSae 04/11/2007 Injection Injection Glenn Frankie, M.DSae 03/21/2007 Injection Injection Glenn Frankie, M.DSae 02/21/2007 Injection Injection Glenn Frankie, M.DSae 01/31/2007 Injection Injection Glenn Frankie, M.DSae 01/17/2007 Injection Injection Glenn Frankie, M.DSae 01/03/2007 Injection Injection Glenn Frankie, M.DSae 11/22/2006 Injection Injection Glenn Frankie, Connor.DSae 11/08/2006 Injection Injection Glenn Frankie, Connor.DSae 10/25/2006 Injection Injection Glenn Frankie, Connor.DSae 10/11/2006 Injection Injection Glenn Frankie, M.DSae 09/27/2006 Injection Injection Glenn Frankie, M.DSae 09/13/2006 Injection Injection Glenn Frankie, M.DSae 08/30/2006 Injection Injection Glenn Frankie, M.DSae 08/16/2006 Injection Injection Glenn Frankie, M.DSae 08/02/2006 Injection Injection Glenn Frankie, Connor.DSae 07/19/2006 Injection Injection Glenn Frankie, M.DSae 06/28/2006 Injection Injection Glenn Frankie, M.DSae 06/07/2006 Injection Injection Glenn Frankie, M.DSae 05/24/2006 Injection Injection Glenn Frankie, M.DSae 05/10/2006 Injection Injection Glenn Frankie, M.DSae 04/26/2006 Injection Injection Glenn Frankie, M.DSae 04/12/2006 Injection Injection Glenn Frankie, M.DSae 03/22/2006 Injection Injection Glenn Frankie, M.DSae 03/01/2006 Injection Injection Glenn Frankie, M.DSae 02/15/2006 Injection Injection Glenn Frankie, M.D. 02/03/2006 Injection Injection Glenn Frankie, M.DSae 01/18/2006 Injection Injection Glenn Frankie, M.D. 01/04/2006 Injection Injection Glenn Frankie, M.DSae 12/23/2005 Injection Injection Glenn Frankie, M.DSae 12/07/2005 Injection Injection Glenn Frankie, M.DSae 11/23/2005 Injection Injection Glenn Frankie, M.DSae 11/02/2005 Injection Injection Glenn Frankie, M.DSae 10/19/2005 Injection Injection Glenn Frankie, M.DSae 10/05/2005 Injection Injection Glenn Frankie, M.DSae 09/23/2005 Injection Injection Glenn Frankie, M.DSae 09/07/2005 Injection Injection Glenn Frankie, M.DSae 08/24/2005 Injection Injection Glenn Frankie, M.DSae 08/10/2005 Injection Injection Glenn Frankie, M.DSae 07/27/2005 Injection Injection Glnen Frankie, M.DSae 07/13/2005 Injection Injection Glenn Frankie, M.DSae 06/15/2005 Injection Injection Glenn Frankie, M.DSae 06/01/2005 Injection Injection Glenn Frankie, M.DSae 05/18/2005 Injection Injection Glenn Frankie, M.DSae 05/06/2005 Injection Injection Glenn Frankie, M.DSae 04/20/2005 Injection Injection Glenn Frankie, M.DSae 04/08/2005 Injection Injection Glenn Frankie, M.DSae 03/04/2005 Injection Injection Glenn Frankie, M.DSae 02/16/2005 Injection Injection Glenn Frankie, M.DSae 02/02/2005 Injection Injection Glenn Frankie, M.DSae 01/19/2005 Injection Injection Glenn Frankie, M.DSae 01/05/2005 Injection Injection Glenn Frankie, M.DSae 12/24/2004 Injection Injection Glenn Frankie, M.DSae 12/10/2004 Injection Injection Glenn Frankie, M.DSae 11/24/2004 Injection Injection Glenn Frankie, M.DSae 11/10/2004 Injection Injection Glenn Frankie, M.D. 10/27/2004 Injection Injection Glenn Frankie, M.D. 09/29/2004 Injection Injection Glenn Frankie, M.D. 09/01/2004 Injection Injection Glenn Frankie, M.D. 08/06/2004 Injection Injection Glenn Frankie, M.D. 07/07/2004 Injection Injection Glenn Frankie, M.D. 06/09/2004 Injection Injection Glenn Frankie, M.D. 05/12/2004 Injection Injection Glenn Frankie, M.D. 04/28/2004 Injection Injection Glenn Frankie, M.D. 04/14/2004 Injection Injection Glenn Frankie, M.D. 03/31/2004 Injection Injection Glenn Frankie, M.D. 03/17/2004 Injection Injection Glenn Frankie, M.D. 03/03/2004 Injection Injection Glenn Frankie, M.D. 02/18/2004 Injection Injection Glenn Frankie, M.D. 02/04/2004 Injection Injection Glenn Frankie, M.D. 01/21/2004 Injection Injection Glenn Frankie, M.D. 01/07/2004 Injection Injection Glenn Frankie, M.D. 12/24/2003 Injection Injection Glenn Frankie, M.D. 12/10/2003 Injection Injection Glenn Frankie, M.D. 11/26/2003 Injection Injection Glenn Frankie, M.D. 11/12/2003 Injection Injection Glenn Frankie, M.D. 10/29/2003 Injection Injection Glenn Frankie, M.D. 10/15/2003 Injection Injection Glenn Frankie, M.D. 10/01/2003 Injection Injection Glenn Frankie, M.D. 09/17/2003 Injection Injection Glenn Frankie, M.D. 09/03/2003 Injection Injection Glenn Frankie, M.D. 08/20/2003 Injection Injection Glenn Frankie, M.D. 08/06/2003 Injection Injection Glenn Frankie, M.D. 07/23/2003 Injection Injection Glenn Frankie, M.D. 07/09/2003 Injection Injection Glenn Frankie, M.D. 06/25/2003 Injection Injection Glenn David M.D. 06/18/2003 Injection Injection Glenn David M.D. 06/11/2003 Injection Injection Glenn David M.D. 06/04/2003 Injection Injection Glenn David M.D. 05/28/2003 Injection Injection Glenn David M.D. 05/21/2003 Injection Injection Glenn David M.D. 05/14/2003 Injection Injection Glenn David M.D. 05/07/2003 Injection Injection Glenn David M.D. 04/30/2003 Injection Injection Glenn David M.D. 04/23/2003 Injection Injection Glenn David M.D. 04/16/2003 Injection Injection Glenn David M.D. 04/09/2003 Injection Injection Glenn David M.D. 04/02/2003 Injection Injection Glenn David M.D. 03/26/2003 Injection Injection Glenn David M.D. 03/19/2003 Injection Injection Glenn David M.D. 03/05/2003 Injection Injection Glenn David M.D. 02/26/2003 Injection Injection Glenn David M.D. 02/19/2003 Injection Immunizations CPT Code Status Date Vaccine Lot # 71162 Given 10/30/2013 Influenza Vaccine 24168 Given Unknown Pneumococcal Vaccine 07121 Given Unknown Influenza Vaccine 49207 Given Unknown Influenza Vaccine 90955 Given Unknown Influenza Vaccine 97942 Given Unknown Influenza Vaccine 29638 Given Unknown Influenza Vaccine Vital Signs Date Vital Result Comment 05/01/2019 4:54pm Height 72 inches 6'0" Weight 271.00 lb Weight 122.926 kg Respiratory Rate 16 /min Heart Rate 71 /min O2 % BldC Oximetry 98 % BP Systolic 99 mmHg BP Diastolic 62 mmHg Asthma Control Test 25 BMI (Body Mass Index) 36.8 kg/m2 04/05/2019 4:27pm Height 72 inches 6'0" Weight 273.00 lb Weight 123.833 kg Respiratory Rate 20 /min Heart Rate 71 /min O2 % BldC Oximetry 94 % BP Systolic 108 mmHg BP Diastolic 58 mmHg Asthma Control Test 23 Fractional Exhaled Nitric Oxide 20 BMI (Body Mass Index) 37.0 kg/m2 Results Description No Information Available Procedures Date Code Description Status 05/01/2019 30320 Biologic Agent Administration Completed 04/05/2019 98420 Biologic Agent Administration Completed 04/05/2019 69639 Nitric Oxide Gas Determination Completed 03/07/2019 05487 Biologic Agent Administration Completed 03/07/2019 67536 Nitric Oxide Gas Determination Completed 03/07/2019 83534 Nitric Oxide Gas Determination Completed 03/07/2019 39642 Pre PFT Completed 02/08/2019 91504 Biologic Agent Administration Completed 01/11/2019 33918 Biologic Agent Administration Completed 12/07/2018 36784 Biologic Agent Administration Completed 11/07/2018 94422 Biologic Agent Administration Completed Medical Devices Description No Information Available Encounters Description No Information Available Assessments Date Code Description Provider 05/01/2019 J45.50 Severe persistent asthma, uncomplicated Milla Selby DEVELOPMENT PLANNER-C 05/01/2019 J30.81 Allergic rhinitis due to animal (cat) BONIFACIO Romero -C (dog) hair and dander 05/01/2019 J30.1 Allergic rhinitis due to pollen JAILENE RomeroP-C 05/01/2019 L50.0 Allergic urticaria JAILENE RomeroP-C 04/05/2019 J45.50 Severe persistent asthma, uncomplicated Quinn Kirkpatrick M.D. 04/05/2019 J45.50 Severe persistent asthma, uncomplicated Quinn Kirkpatrick M.D. 04/05/2019 J45.50 Severe persistent asthma, uncomplicated BONIFACIO Hays 04/05/2019 J30.81 Allergic rhinitis due to animal (cat) Quinn Kirkpatrick M.D. (dog) hair and dander 04/05/2019 J30.81 Allergic rhinitis due to animal (cat) MITCHELL Hays (dog) hair and dander 04/05/2019 J30.1 Allergic rhinitis due to pollen Quinn Kirkpatrick M.D. 04/05/2019 J30.1 Allergic rhinitis due to pollen MITCHELL Hays 03/07/2019 J45.50 Severe persistent asthma, uncomplicated Quinn Kirkpatrick M.D. 03/07/2019 J45.50 Severe persistent asthma, uncomplicated MITCHELL Romero 03/07/2019 J30.81 Allergic rhinitis due to animal (cat) Quinn Kirkpatrick M.D. (dog) hair and dander 03/07/2019 J30.81 Allergic rhinitis due to animal (cat) BONIFACIO Romero (dog) hair and dander 03/07/2019 J30.1 Allergic rhinitis due to pollen Quinn Kirkpatrick M.D. 03/07/2019 J30.1 Allergic rhinitis due to pollen BONIFACIO Romero-C 02/08/2019 J45.50 Severe persistent asthma, uncomplicated Isaías Crowley M.D. 01/11/2019 J45.50 Severe persistent asthma, uncomplicated Quinn Kirkpatrick M.D. 01/11/2019 J45.50 Severe persistent asthma, uncomplicated BONIFACIO Hays 01/11/2019 L50.0 Allergic urticaria Quinn Kirkpatrick M.D. 01/11/2019 L50.0 Allergic urticaria MITCHELL Hays 01/11/2019 Z68.37 Body mass index (BMI) 37.0-37.9, adult Quinn Kirkpatrick M.D. 01/11/2019 Z68.37 Body mass index (BMI) 37.0-37.9, adult LIZ Hays 12/07/2018 J45.50 Severe persistent asthma, uncomplicated Quinn Kirkpatrick M.D. 12/07/2018 J45.50 Severe persistent asthma, uncomplicated BONIFACIO Hays 12/07/2018 J30.81 Allergic rhinitis due to animal (cat) Quinn Kirkpatrick M.D. (dog) hair and dander 12/07/2018 J30.81 Allergic rhinitis due to animal (cat) MITCHELL Hays (dog) hair and dander 12/07/2018 J30.1 Allergic rhinitis due to pollen Quinn Kirkpatrick M.D. 12/07/2018 J30.1 Allergic rhinitis due to pollen MITCHELL Hays 11/07/2018 J45.50 Severe persistent asthma, uncomplicated Quinn Kirkpatrick M.D. 11/07/2018 J45.50 Severe persistent asthma, uncomplicated MITCHELL Romero 11/07/2018 J30.81 Allergic rhinitis due to animal (cat) Quinn Kirkpatrick M.D. (dog) hair and dander 11/07/2018 J30.81 Allergic rhinitis due to animal (cat) BONIFACIO Romero (dog) hair and dander 11/07/2018 J30.1 Allergic rhinitis due to pollen Quinn Kirkpatrick M.D. 11/07/2018 J30.1 Allergic rhinitis due to pollen MITCHELL Romero 11/07/2018 L50.0 Allergic urticaria Quinn Kirkpatrick M.D. 11/07/2018 L50.0 Allergic urticaria MITCHELL Romero Plan of Treatment Future Appointment(s):07/24/2019 9:00 am - MITCHELL Romero at [facility]06/27/2019 4:20 pm - MITCHELL Romero at [facility]05/29/2019 4:40 pm - MITCHELL Romero at [facility]05/01/2019 - LIZ RomeroCJ45.50 Severe persistent asthma, lwrnazcluxcpcS95.81 Allergic rhinitis due to animal (cat) (dog) hair and qdkbblD33.1 Allergic rhinitis due to lzyfkeV00.0 Allergic urticariaRecommendations:Continue all medications as prescribed.Refrain from wearing perfumes/scented colognes while visitingour office. Continue all medications as prescribed: 1. Cetirizine 10mg once daily 2. Xopenex or Proair 2 puffs every 4 hours as needed for cough, wheeze or shortness of breath OR 20 minutes prior to exercise 3. Symbicort 160/4.5 2 puffs twice daily with spacer 4. montelukast 10mg once daily at bedtime 5. fluticasone nasal spray 1-2 squirts each nostril once daily 6. Xolair 300mg every 4 weeks - please keep Epipen on your person for 24 hours after injections Monitor Albuterol use. If using more than 2x/week, please call the office as your asthma medications may need to be adjusted. If symptoms increase, phone our office. Follow Up : 4 weeks for Xolair injection Functional Status Description No Information Available Mental Status Description No Information Available Referrals Description No Information Available
--- OUTSIDE RECORDS SUMMARY | 2019-05-13 18:55 | XMS REPORT | Continuity of Care Document ---
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 Onset: 12/04/2015 Carpal tunnel syndrome Radha Barragan M.D. Onset: 12/04/2015 Chronic fatigue syndrome Hayes Aldrich M.D. Onset: 08/10/2018 Dizziness and giddiness Hayes Aldrich M.D. Onset: 08/10/2018 Neck pain Hayes Aldrich M.D. Onset: 08/10/2018 Social History Type Date Description Comments Sex Unknown ETOH Use Denies alcohol use Recreational Drug Use Denies Drug Use Tobacco Use Start: Unknown End: Patient is a former quit in 1997 Unknown smoker Smoking Status Reviewed: 03/21/19 Patient is a former quit in 1997 smoker Exercise Type/Frequency Does not exercise Allergies, Adverse Reactions, Alerts Description No Known Drug Allergies Medications Active Medications SIG Qnty Indications Ordering Date Provider Symbicort 2 puffs bid Unknown 160-4.5mcg/Act Aerosol Montelukast Sodium 1 po qd Unknown 10mg Tablets Ipratropium Unknown Hayes/Albuterol Sulfate 0.5-2.5(3)mg/3ML Solution Zyrtec Allergy 1 by mouth every Unknown 10mg day Capsules Flonase Allergy Relief 2 intranasal twice Unknown a day 50mcg/Act Suspension Albuterol Sulfate puff every 6 hours Unknown Powder as needed Xolair injection qmonth Unknown 150mg Solution Rec Levothyroxine Sodium 1 po qd Pablo Sigala MD 125mcg Tablets Baratrics chew 4 tabs every Unknown Chewtabs day Prosac 1 tab a day po Unknown 60mg Capsules Aciphex once every morning Unknown 20mg Tablets DR Topiramate take 1 tablet by Unknown 25mg Tablets mouth twice a day Immunizations Description No Information Available Vital Signs Date Vital Result Comment 03/21/2019 8:25am Height 73 inches 6'1" Weight 271.00 lb Heart Rate 71 /min BP Systolic Sitting 110 mmHg BP Diastolic Sitting 74 mmHg Respiratory Rate 18 /min Pain Level 2 BMI (Body Mass Index) 35.8 kg/m2 02/22/2019 2:04pm Height 73 inches 6'1" Weight 273.00 lb Heart Rate 78 /min BP Systolic Sitting 118 mmHg BP Diastolic Sitting 76 mmHg Respiratory Rate 16 /min Pain Level 6 O2 % BldC Oximetry 98 % BMI (Body Mass Index) 36.0 kg/m2 Results Description No Information Available Procedures Description No Information Available Medical Devices Description No Information Available Encounters Type Date Location Provider Dx Diagnosis Office Visit 02/22/2019 Orthopedic Hemant Enrique MD S93.401D Sprain of 2:00p Services Of Manager Program Management unspecified AT [facility] ligament of right ankle, subs encntr Office Visit 10/20/2018 [facility] Hayes Aldrich, R20.2 Paresthesia of 2:15p Services Of Barbra Michelle skin Assessments Date Code Description Provider 03/21/2019 S93.401D Sprain of unspecified ligament of right Hemant Enrique MD ankle, subsequent en 02/22/2019 S93.401D Sprain of unspecified ligament of right Hemant Enrique MD ankle, subsequent en 10/20/2018 R20.2 Paresthesia of skin Hayes Aldrich M.D. Plan of Treatment Future Appointment(s):04/23/2019 3:30 pm - Geovanni Jones N.P. at [facility]03/21/2019 - Hemant Enrique MDS93.401D Sprain of unspecified ligament of right ankle, subsequent enFollow up:Follow up: As needed Functional Status Description No Information Available Mental Status Description No Information Available Referrals Description No Information Available
--- OUTSIDE RECORDS SUMMARY | 2019-05-13 18:55 | XMS REPORT | Continuity of Care Document ---
:1975 External Reference #:[id number] Author Name MITCHELL Romero Address [address] [place] [address] Problems Active Problems Provider Date Allergic rhinitis [...] 30.6gm Brandee Wrightmond, 04/05/2019 by mouth two WINDOW CASER-C 160-4.5mcg/Act times a day Aerosol Spiriva Respimat 2 puffs once 4gm Brandee Armando, 04/05/2019 daily [facility]ER-C 1.25mcg/Act Aerosol Xolair inject 300mg 2ml Millaguilherme Selby, 11/07/2018 150mg/ml Soln every 4 weeks W[facility]OW CASER-C Prefill Syringe Azelastine HCL 1 spray each 90ml Milla Nailadrkari, 04/27/2018 (Nasal) nostril twice [facility]INDOW CASER-C 0.15% daily as needed Solution for nasal congestion/stuff iness Auvi-Q use as directed. 3-2packs J45.50 Shaila Sellers, 09/21/2016 0.3mg/0.3ML im. WINDOW CASER-C Solution Auto-Inject Cetirizine HCL 1 by mouth every 30tabs J45.50 Octavia Herndon, 08/26/2016 10mg day WINDOW CASER-C Tablets J30.81 J45.50 Xopenex HFA 2 puffs q4-6 1inhaler J45.50 Inna PoloRPA-C 06/02/2016 45mcg/Act hours as needed Aerosol for sob, cough, wheeze Ipratropium 1 vial via 1box [email or web address] Crowley M.D. 03/25/2015 [place]/Albuterol nebulizer every 6 Sulfate hours as needed. [...] Fluticasone 1 squirt each 48gm J45.50 Milla Selby, Propionate nostril daily WINDOW CASER-C 50mcg/Act Suspension Multivitamin Women once a day Unknown Tablets Fluoxetine HCL take 3 tablets by Unknown 20mg mouth daily Tablets Rabeprazole Sodium once a day Unknown 20mg Tablets DR Topiramate twice daily Unknown 25mg Tablets Medications Administered in Office Medication SIG Qnty Indications Ordering Provider Date Biologic Agent BONIFACIO Romero-C 05/01/2019 Administration Injection Biologic Agent BONIFACIO Hasy-C 04/05/2019 Administration Injection Biologic Agent BONIFACIO Romero-C [...] 02/23/2018 Administration Injection Biologic Agent Brandee Roberts [facility]-C 02/23/2018 Administration Injection Biologic Agent Quinn Kirkpatrick M.D. 01/18/2018 Administration Injection Biologic Agent Milla Selby, [facility] [facility]-C 01/18/2018 Administration Injection Biologic Agent Quinn Kirkpatrick M.D. 12/21/2017 Administration Injection Biologic Agent Milla Ulalex, [facility] [facility]-C 12/21/2017 Administration Injection Biologic Agent Millaguilherme Selby, [facility] [facility]-C 11/23/2017 Administration Injection Biologic Agent Quinn Kirkpatrick M.D. 10/26/2017 Administration Injection Biologic Agent Milladaljit Selby, [facility]-C 10/26/2017 Administration Injection Biologic Agent Peter Winters M.D. 09/28/2017 Administration Injection Biologic Agent Octavia Herndon, [facility]-C 08/25/2017 Administration Injection Biologic Agent Quinn Kirkpatrick M.D. 07/27/2017 Administration Injection Biologic Agent Quinn Kirkpatrick M.D. 06/22/2017 Administration Injection Biologic Agent Milladaljit Selby, [facility]-C 05/18/2017 Administration Injection Biologic Agent Quinn Kirkpatrick M.D. 04/20/2017 Administration Injection Biologic Agent Millaluna Selby, [facility]-C 04/20/2017 Administration Injection Biologic Agent Millaluna Selby, [facility]-C 03/16/2017 Administration Injection Biologic Agent Marilynn Art, 02/09/2017 Administration [facility]-C Injection Biologic Agent Isaías Crowley M.D. 01/13/2017 Administration Injection Biologic Agent Octaviawalter Herndon, [facility] [facility]-C 12/16/2016 Administration Injection Biologic Agent Octaviawalter Herndon, [facility]-C 11/18/2016 Administration Injection Biologic Agent Octaviawalter Herndon, [facility]C 10/21/2016 Administration Injection Biologic Agent Shaila Sellers, [facility] 09/21/2016 Administration Injection Biologic Agent Octavia Yanick, [facility] 08/26/2016 Administration Injection Biologic Agent Isaías Crowley M.D. 07/29/2016 Administration Injection Biologic Agent Quinn Kirkpatrick M.D. 06/30/2016 Administration Injection Biologic Agent Quinn Kirkpatrick M.D. 06/02/2016 Administration Injection Biologic Agent Debbie Harry, [facility] 04/28/2016 Administration Injection Biologic Agent Shaila Dussing, [facility] 03/30/2016 Administration Injection Biologic Agent Trina Chantelle, [facility] 02/19/2016 Administration Injection Biologic Agent Trina Chantelle, [facility] 01/22/2016 Administration Injection Biologic Agent Shaila Dussing, [facility] 12/23/2015 Administration Injection Biologic Agent Shaila Dussing, [facility] 11/25/2015 Administration Injection Biologic Agent Trina Chantelle, [facility] 10/20/2015 Administration Injection Biologic Agent [facility]elle, [facility] 09/22/2015 Administration Injection Biologic Agent Trina Lockhart, [facility] 08/25/2015 Administration Injection Biologic Agent Shaila Dussing, [facility] 07/24/2015 Administration Injection Biologic Agent Shaila Dussing, [facility] 06/17/2015 Administration Injection Biologic Agent Trina Chantelle, [facility] 05/22/2015 Administration Injection Biologic Agent Trina Lockhart, [facility] 04/22/2015 Administration Injection Injection Glenn David M.D. [...] Frankie, Viviana 03/26/2008 Injection Injection Glenn Frankie, Viviana 03/12/2008 Injection Injection Glenn Frankie, MSaeDSae 01/23/2008 [...] Injection Glenn Frankie, M.DSae 07/27/2005 Injection Injection Glenn Frankie, M.DSae 07/13/2005 Injection Injection Glenn Frankie, [...] CPT Code Status Date Vaccine Lot # 89049 Given 10/30/2013 Influenza Vaccine 24027 Given Unknown Pneumococcal Vaccine 15124 Given Unknown Influenza Vaccine 79966 Given Unknown Influenza Vaccine 05149 Given Unknown Influenza Vaccine 27881 Given Unknown Influenza Vaccine 24294 Given Unknown Influenza Vaccine Vital Signs Date [...] Available Procedures Date Code Description Status 05/01/2019 20448 Biologic Agent Administration Completed 04/05/2019 11884 Biologic Agent Administration Completed 04/05/2019 91643 Nitric Oxide Gas Determination Completed 03/07/2019 22374 Biologic Agent Administration Completed 03/07/2019 28632 Nitric Oxide Gas Determination Completed 03/07/2019 02382 Nitric Oxide Gas Determination Completed 03/07/2019 24865 Pre PFT Completed 02/08/2019 72633 Biologic Agent Administration Completed 01/11/2019 22815 Biologic Agent Administration Completed 12/07/2018 93596 Biologic Agent Administration Completed 11/07/2018 13135 Biologic Agent Administration Completed Medical Devices Description No Information Available Encounters Description No Information Available Assessments Date Code Description Provider 05/01/2019 J45.50 Severe persistent asthma, uncomplicated Quinn Kirkpatrick M.D. 05/01/2019 J45.50 Severe persistent asthma, uncomplicated BONIFACIO Romero-C 05/01/2019 J30.81 Allergic rhinitis due to animal (cat) Quinn Kirkpatrick M.D. (dog) hair and dander 05/01/2019 J30.81 Allergic rhinitis due to animal (cat) BONIFACIO Romero (dog) hair and dander 05/01/2019 J30.1 Allergic rhinitis due to pollen Quinn Kirkpatrick M.D. 05/01/2019 J30.1 Allergic rhinitis due to pollen BONIFACIO Romero-C 05/01/2019 L50.0 Allergic urticaria Quinn Kirkpatrick M.D. 05/01/2019 L50.0 Allergic urticaria BONIFACIO Romero-C 04/05/2019 J45.50 Severe persistent asthma, uncomplicated Quinn [...] 03/07/2019 J45.50 Severe persistent asthma, uncomplicated Quinn Kirkpatrikc M.D. 03/07/2019 J45.50 Severe persistent asthma, uncomplicated MITCHELL Romero 03/07/2019 J30.81 Allergic rhinitis due to animal (cat) Quinn Kirkpatrick M.D. (dog) hair and dander 03/07/2019 J30.81 Allergic rhinitis due to animal (cat) BONIFACIO Romero (dog) hair and dander 03/07/2019 J30.1 Allergic rhinitis due to pollen Quinn Kirkpatrick M.D. 03/07/2019 J30.1 Allergic rhinitis due to pollen BONIFACIO Romero-[place] 02/08/2019 J45.50 Severe persistent asthma, uncomplicated Isaías [...] Appointment(s):07/24/2019 9:00 am - MITCHELL Romero at [facility]06/27/2019 4:20 pm - MITCHELL Romero at [facility]05/29/2019 4:40 pm - MITCHELL Romero at [facility] Functional Status Description No Information Available Mental Status Description No Information Available Referrals Description No Information Available
--- OUTSIDE RECORDS SUMMARY | 2019-05-13 18:55 | XMS REPORT | Continuity of Care Document ---
:1975 External Reference #:[id number] Author Name MITCHELL Hays Address [address] [place] [address] Problems Active Problems Provider Date Allergic rhinitis [...] MICHAEL Brewer Onset: 05/22/2015 Uncomplicated severe persistent BONIFACIO Brewer-BC Onset: 05/22/2015 asthma Immunization MICHAEL Brewer Onset: 06/19/2015 Severe persistent asthma with (acute) MICHAEL Brewer Onset: 2014 exacerbation Allergic urticaria MICHAEL Brewer Onset: 10/06/2015 Allergic rhinitis due to animals MITCHELL Patricia Onset: 2016 Uncomplicated severe persistent Octavia MITCHELL Herndon Onset: 10/21/2016 asthma Body mass index 30+ - obesity Isaías Crowley M.D. Onset: 01/13/2017 Social History Type Date Description Comments Sex Unknown ETOH Use Denies alcohol use Tobacco Use Start: Unknown Patient has never smoked Recreational Drug Use Denies Drug Use Smoking Status Reviewed: 07/27/17 Patient has never smoked Allergies, Adverse Reactions, Alerts Description No Known Drug Allergies Medications Active Medications SIG Qnty Indications Ordering Date Provider Symbicort inhale two puffs by 30.6gm Brandee Roberts, 04/05/2019 mouth two times a RESEARCH NURSE-C 160-4.5mcg/Act day Aerosol Spiriva Respimat 2 puffs once daily 4gm Brandee Roberts, 04/05/2019 RESEARCH NURSE-C 1.25mcg/Act Aerosol Xolair inject 300mg every 2ml Milla 11/07/2018 150mg/ml 4 weeks Uldrich RESEARCH NURSE-C Soln Prefill Syringe Azelastine HCL 1 spray each 90ml Milla 04/27/2018 (Nasal) nostril twice daily Uldrich, RESEARCH NURSE-C 0.15% as needed for nasal Solution congestion/stuffine ss Sterile Water For Use To Reconstitute 20units Shaila Melvinkelly, 03/17/2017 Injection Xolair. Single-Dose RESEARCH NURSE-C Solution Vial(S), Discard After Use. Syringe 3ML L/L No For Use With 4units Shaila Dussing, 03/17/2017 Needle Xolair. RESEARCH NURSE-C 9657BD Needle 18G X 1" BD For Use With 4units Shaila Dussing, 03/17/2017 Xolair. RESEARCH NURSE-C 816096 Auvi-Q use as directed. 3-2packs J45.50 Shaila Dussinevelio, 09/21/2016 0.3mg/0.3ML im. RESEARCH NURSE-C Solution Auto-Inject Cetirizine HCL 1 by mouth every 30tabs J45.50 Octavia 08/26/2016 10mg day Yanick, RESEARCH NURSE-C Tablets J30.81 J45.50 Xopenex HFA 2 puffs q4-6 1inhaler J45.50 PADMINI Cunningham 06/02/2016 45mcg/Act hours as needed Aerosol for sob, cough, wheeze Ipratropium 1 vial via 1box J45.50 Isaías Crowley M.D. 03/25/2015 Laurel/Albuterol nebulizer every 6 Sulfate hours as needed. 0.5-2.5(3)mg/3ML Solution Levalbuterol HCL use via nebulizer 1box Ghislaineisabel Barcenas, 03/21/2015 every 4 -6 hours M.D. 1.25mg/3ML Nebulizer prnr shortness of breath, cough or wheezing Albuterol Sulfate #1 via nebulizer 1Box J45.50 Isaías Crowley M.D. 2014 every 4-6 hours (2.5mg/3ML) 0.083% as needed for Nebulizer cough, shortness of breath and wheezing Symbicort inhale 2 puffs in 3units Milla Selby, 08/15/2012 the morning and RESEARCH NURSE-C 160-4.5mcg/Act in the evening Aerosol Montelukast Sodium 1 tablet by mouth 90tabs MITCHELL Hays 2012 10mg every evening Tablets Synthroid once a day Unknown 125mcg Tablets Fluticasone 1 squirt each 48gm J45.50 Milla Selby, Propionate nostril daily BONIFACIO-C 50mcg/Act Suspension Multivitamin Women once a day Unknown Tablets Fluoxetine HCL take 3 tablets by Unknown 20mg mouth daily Tablets Rabeprazole Sodium once a day Unknown 20mg Tablets DR Topiramate twice daily Unknown 25mg Tablets Medications Administered in Office Medication SIG Qnty Indications Ordering Provider Date Biologic Agent MITCHELL Hays 04/05/2019 Administration Injection Biologic Agent MITCHELL Romero 03/07/2019 Administration Injection Biologic Agent Isaías Crowley M.D. 02/08/2019 Administration Injection Biologic Agent MITCHELL Hays 01/11/2019 Administration Injection Biologic Agent MITCHELL Hays 12/07/2018 Administration Injection Biologic Agent MITCHELL Romero 11/07/2018 Administration Injection Biologic Agent MITCHELL Hays 10/12/2018 Administration Injection Biologic Agent MITCHELL Romero 09/13/2018 Administration Injection Biologic Agent Brandee Roberts, RESEARCH NURSE-C 08/17/2018 Administration Injection Biologic Agent Brandee Roberts, RESEARCH NURSE-C 07/20/2018 Administration Injection Biologic Agent Ghislaine Barcenas M.D. 06/20/2018 Administration Injection Biologic Agent Isaías Crowley M.D. 05/25/2018 Administration Injection Biologic Agent Quinn Kirkpatrick M.D. 04/27/2018 Administration Injection Biologic Agent BONIFACIO Hays-C 04/27/2018 Administration Injection Biologic Agent Quinn Kirkpatrick M.D. 03/30/2018 Administration Injection Biologic Agent BONIFACIO Hays-C 03/30/2018 Administration Injection Biologic Agent Isaías Crowley M.D. 02/23/2018 Administration Injection Biologic Agent BONIFACIO Hays-C 02/23/2018 Administration Injection Biologic Agent Quinn Kirkpatrick M.D. 01/18/2018 Administration Injection Biologic Agent Milla Selby, RESEARCH NURSE-C 01/18/2018 Administration Injection Biologic Agent Quinn Kirkpatrick M.D. 12/21/2017 Administration Injection Biologic Agent Milla Selby, RESEARCH NURSE-C 12/21/2017 Administration Injection Biologic Agent Milladaljit Selby, RESEARCH NURSE-C 11/23/2017 Administration Injection Biologic Agent Quinn Kirkpatrick M.D. 10/26/2017 Administration Injection Biologic Agent Milla Selby, RESEARCH NURSE-C 10/26/2017 Administration Injection Biologic Agent Peter Winters M.D. 09/28/2017 Administration Injection Biologic Agent BONIFACIO Arias-C 08/25/2017 Administration Injection Biologic Agent Quinn Kirkpatrick M.D. 07/27/2017 Administration Injection Biologic Agent Quinn Kirkpatrick M.D. 06/22/2017 Administration Injection Biologic Agent Milladaljit Selby, RESEARCH NURSE-C 05/18/2017 Administration Injection Biologic Agent uQinn Kirkpatrick M.D. 04/20/2017 Administration Injection Biologic Agent Milladaljit Selby, RESEARCH NURSE-C 04/20/2017 Administration Injection Biologic Agent Millaluna Selby, RESEARCH NURSE-C 03/16/2017 Administration Injection Biologic Agent Marilynn rAt, 02/09/2017 Administration RESEARCH NURSE-C Injection Biologic Agent Isaías Crowley M.D. 01/13/2017 Administration Injection Biologic Agent Octaviawalter Herndon, RESEARCH NURSE-C 12/16/2016 Administration Injection Biologic Agent Octaviaceleste Herndon, RESEARCH NURSE-C 11/18/2016 Administration Injection Biologic Agent Octaviaceleste Herndon, RESEARCH NURSE-C 10/21/2016 Administration Injection Biologic Agent Shaila Yolandag, RESEARCH NURSE-C 09/21/2016 Administration Injection Biologic Agent Octaviaceleste Herndon, [facility] 08/26/2016 Administration Injection Biologic Agent Isaías Crowley M.D. 07/29/2016 Administration Injection Biologic Agent Quinn Kirkpatrick M.D. 06/30/2016 Administration Injection Biologic Agent Quinn Kirkpatrick M.D. 06/02/2016 Administration Injection Biologic Agent Poppy Welch, [facility] 04/28/2016 Administration Injection Biologic Agent Shaila Melvinsing, [facility] 03/30/2016 Administration Injection Biologic Agent Trina Lockhart, [facility] 02/19/2016 Administration Injection Biologic Agent Trina Lockhart, [facility] 01/22/2016 Administration Injection Biologic Agent Shaila Dussing, RESEARCH NURSE-C 12/23/2015 Administration Injection Biologic Agent Shaila Dussing, RESEARCH NURSE-C 11/25/2015 Administration Injection Biologic Agent Trina Lockhart, [facility] 10/20/2015 Administration Injection Biologic Agent Trina Lockhart, [facility] 09/22/2015 Administration Injection Biologic Agent Trina Lockhart, [facility] 08/25/2015 Administration Injection Biologic Agent Shaila Dussing, RESEARCH NURSE-C 07/24/2015 Administration Injection Biologic Agent Shaila Dussing, RESEARCH NURSE-C 06/17/2015 Administration Injection Biologic Agent Tirna Lockhart, [facility] 05/22/2015 Administration Injection Biologic Agent Trina Lockhart, [facility] 04/22/2015 Administration Injection Injection Glenn David M.D. 01/26/2011 Injection Injection Glenn David M.D. 01/12/2011 Injection Injection Glenn David M.D. 12/22/2010 Injection Injection Glenn David M.D. 12/15/2010 Injection Injection Glenn Frankie, M.DSae 12/08/2010 Injection Injection Glenn Frankie, MSaeDSae 12/03/2010 Injection Injection Glenn Frankie, M.DSae 11/17/2010 Injection Injection Glenn Frankie, M.DSae 09/08/2010 Injection Injection Glenn Frankie, M.DSae 08/25/2010 Injection Injection Glenn Frankie, M.DSae 08/04/2010 Injection Injection Glenn Frankie, M.DSae 07/21/2010 Injection Injection Glenn Frankie, M.DSae 07/07/2010 Injection Injection Glenn Frankie, M.DSae 06/16/2010 Injection Injection Glenn Frankie, M.DSae 06/04/2010 Injection Injection Glenn Frankie, M.DSae 05/05/2010 Injection Injection Glenn Frankie, M.DSae 04/28/2010 Injection Injection Glenn Frankie, GayeDSae 04/21/2010 Injection Injection Glenn Frankie, M.DSae 04/14/2010 Injection Injection Glenn Frankie, M.DSae 04/07/2010 Injection Injection Glenn Frankie, M.DSae 03/31/2010 Injection Injection Glenn Frankie, MSaeDSae 03/24/2010 Injection Injection Glenn Frankie, M.DSae 03/17/2010 [...] Frankie, M.DSae 12/16/2009 Injection Injection Glenn Frankie, Viviana 12/09/2009 Injection Injection Glenn Frankie, GayeDSae 12/02/2009 Injection Injection Glenn Frankie, M.DSae 11/25/2009 Injection Injection Glenn Frankie, M.DSae 11/18/2009 Injection Injection Glenn Frankie, Connor.DSae 11/11/2009 Injection Injection Glenn Frankie, GayeDSae 11/04/2009 Injection Injection Glenn Frankie, M.DSae 10/28/2009 Injection Injection Glenn Frankie, M.DSae 10/21/2009 Injection Injection Glenn Frankie, M.DSae 10/14/2009 Injection Injection Glenn Frankie, GayeDSae 10/07/2009 Injection Injection Glenn Frankie, Viviana 09/30/2009 Injection Injection Glenn Frankie, GayeDSae 09/23/2009 Injection Injection Hayes Goss, 08/28/2009 Injection M.DSae Injection Ghislaine Barcenas M.D. 08/19/2009 Injection Injection Ghislaine Barcenas M.D. 08/12/2009 Injection Injection Glenn Frankie, Viviana 04/08/2009 Injection Injection Glenn Frankie, Viviana 03/25/2009 Injection Injection Glenn Frankie, Viviana 03/11/2009 Injection Injection Glenn Frankie, Viviana 02/25/2009 Injection Injection Glenn Frankie, Viviana 02/11/2009 Injection Injection Glenn Frankie, Viviana 01/16/2009 Injection Injection Glenn Frankie, Viviana 12/31/2008 Injection Injection Glenn Frankie, Viviana 12/17/2008 Injection Injection Glenn Frankie, Viviana 12/03/2008 Injection Injection Andrés Coronado M.D. 11/19/2008 Injection Injection Glenn Frankie, Viviana 11/05/2008 Injection Injection Glenn Frankie, Viviana 10/08/2008 Injection Injection Glenn Frankie, Viviana 09/24/2008 Injection Injection Glenn Frankie, Viviana 05/07/2008 Injection Injection Glenn Frankie, GayeDSae 04/23/2008 Injection Injection Glenn Frankie, M.DSae 04/09/2008 Injection Injection Glenn Frankie, M.DSae 03/26/2008 Injection Injection Glenn Frankie, M.DSae 03/12/2008 Injection Injection Glenn Frankie, M.DSae 01/23/2008 Injection Injection Glenn Frankie, M.DSae 12/05/2007 Injection Injection Glenn Frankie, M.DSae 11/23/2007 Injection Injection Glenn Frankie, M.DSae 11/09/2007 Injection Injection Glenn Frankie, M.DSae 07/18/2007 Injection Injection Glenn Frankie, Connor.DSae 06/06/2007 Injection Injection Glenn Frankie, Connor.DSae 05/23/2007 Injection Injection Glenn Frankie, Connor.DSae 05/04/2007 Injection Injection Glenn Frankie, Connor.DSae 04/11/2007 Injection Injection Glenn Frankie, Connor.DSae 03/21/2007 Injection Injection Glenn Frankie, M.DSae 02/21/2007 Injection Injection Glenn Frankie, Connor.DSae 01/31/2007 Injection Injection Glenn Frankie, Connor.DSae 01/17/2007 Injection Injection Glenn Frankie, Connor.DSae 01/03/2007 Injection Injection Glenn Frankie, M.DSae 11/22/2006 Injection Injection Glenn Frankie, M.DSae 11/08/2006 Injection Injection Glenn Frankie, M.DSae 10/25/2006 Injection Injection Glenn Frankie, M.DSae 10/11/2006 Injection Injection Glenn Frankie, M.DSae 09/27/2006 Injection Injection Glenn Frankie, M.DSae 09/13/2006 Injection Injection Glenn Frankie, M.DSae 08/30/2006 Injection Injection Glenn Frankie, M.DSae 08/16/2006 Injection Injection Glenn Frankie, M.DSae 08/02/2006 Injection Injection Glenn Frankie, M.DSae 07/19/2006 Injection Injection Glenn Frankie, M.DSae 06/28/2006 Injection Injection Glenn Frankie, M.DSae 06/07/2006 Injection Injection Glenn Frankie, M.DSae 05/24/2006 Injection Injection Glenn Frankie, M.DSae 05/10/2006 Injection Injection Glenn Frankie, M.DSae 04/26/2006 Injection Injection Glenn Frankie, M.DSae 04/12/2006 Injection Injection Glenn Frankie, M.DSae 03/22/2006 Injection Injection Glenn Frankie, M.DSae 03/01/2006 Injection Injection Glenn Frankie, M.DSae 02/15/2006 Injection Injection Glenn Frankie, M.DaSe 02/03/2006 Injection Injection Glenn Frankie, M.DSae 01/18/2006 Injection Injection Glenn Frankie, M.DSae 01/04/2006 Injection Injection Glenn Frankie, M.DSae 12/23/2005 [...] Frankie, M.DSae 03/04/2005 Injection Injection Glenn Frankie, M.D. 02/16/2005 Injection Injection Glenn Frankie, M.D. 02/02/2005 Injection Injection Glenn Frankie, M.D. 01/19/2005 Injection Injection Glenn Frankie, M.D. 01/05/2005 Injection Injection Glenn Frankie, M.D. 12/24/2004 Injection Injection Glenn Frankie, M.D. 12/10/2004 Injection Injection Glenn Frankie, M.DSae 11/24/2004 Injection Injection Glenn Frankie, M.DSae 11/10/2004 Injection Injection Glenn Frankie, M.D. 10/27/2004 Injection Injection Glenn Frankie, M.DSae 09/29/2004 Injection Injection Glenn Frankie, M.DSae 09/01/2004 Injection Injection Glenn Frankie, M.DSae 08/06/2004 Injection Injection Glenn Frankie, M.DSae 07/07/2004 Injection Injection Glenn Farnkie, M.DSae 06/09/2004 Injection Injection Glenn Frankie, M.D. 05/12/2004 Injection Injection Glenn Frankie, M.D. 04/28/2004 Injection Injection Glenn Frankie, M.D. 04/14/2004 Injection Injection Glenn Frankie, M.DSae 03/31/2004 Injection Injection Glenn Frankie, M.DSae 03/17/2004 Injection Injection Glenn Frankie, M.DSae 03/03/2004 Injection Injection Glenn Frankie, M.DSae 02/18/2004 Injection Injection Glenn Frankie, M.DSae 02/04/2004 Injection Injection Glenn Frankie, M.DSae 01/21/2004 Injection Injection Glenn Frankie, M.DSae 01/07/2004 Injection Injection Glenn Frankie, M.DSae 12/24/2003 Injection Injection Glenn Frankie, M.DSae 12/10/2003 Injection Injection Glenn Frankie, M.DSae 11/26/2003 Injection Injection Glenn Frankie, M.DSae 11/12/2003 Injection Injection Glenn Frankie, M.DSae 10/29/2003 Injection Injection Glenn Frankie, M.DSae 10/15/2003 Injection Injection Glenn Frankie, GayeDSae 10/01/2003 Injection Injection Glenn Frankie, Viviana 09/17/2003 Injection Injection Glenn Frankie, Viviana 09/03/2003 Injection Injection Glenn Frankie, GayeDSae 08/20/2003 Injection Injection Glenn Frankie, Connor.DSae 08/06/2003 Injection Injection Glenn Frankie, Viviana 07/23/2003 Injection Injection Glenn Frankie, Viviana 07/09/2003 Injection Injection Glenn Frankie, Connor.DSae 06/25/2003 Injection Injection Glenn Frankie, Viviana 06/18/2003 Injection Injection Glenn Frankie, Viviana 06/11/2003 Injection Injection Glenn Frankie, Viviana 06/04/2003 Injection Injection Glenn Frankie, Viviana 05/28/2003 Injection Injection Glenn Frankie, Viviana 05/21/2003 Injection Injection Glenn Frankie, Viviana 05/14/2003 Injection Injection Glenn Frankie, Viviana 05/07/2003 Injection Injection Glenn Frankie, Viviana 04/30/2003 Injection Injection Glenn Frankie, Viviana 04/23/2003 Injection Injection Glenn Frankie, GayeDSae 04/16/2003 Injection Injection Glenn Frankie, GayeDSae 04/09/2003 Injection Injection Glenn Frankie, Viviana 04/02/2003 Injection Injection Glenn Frankie, Viviana 03/26/2003 Injection Injection Glenn Frankie, GayeDSae 03/19/2003 Injection Injection Glenn Frankie, GayeDSae 03/05/2003 Injection Injection Glenn Frankie, Viviana 02/26/2003 Injection Injection Glenn Frankie, Viviana 02/19/2003 Injection Immunizations CPT Code Status Date Vaccine Lot # 18193 Given 10/30/2013 Influenza Vaccine 76216 Given Unknown Pneumococcal Vaccine 96563 Given Unknown Influenza Vaccine 75213 Given Unknown Influenza Vaccine 79191 Given Unknown Influenza Vaccine 06607 Given Unknown Influenza Vaccine 74811 Given Unknown Influenza Vaccine Vital Signs Date Vital Result Comment 04/05/2019 4:27pm Height 72 inches 6'0" Weight 273.00 lb Weight 123.833 kg Respiratory Rate 20 /min Heart Rate 71 /min O2 % BldC Oximetry 94 % BP Systolic 108 mmHg BP Diastolic 58 mmHg Asthma Control Test 23 Fractional Exhaled Nitric Oxide 20 BMI (Body Mass Index) 37.0 kg/m2 03/07/2019 4:05pm Height 72 inches 6'0" Weight 273.00 lb Weight 123.833 kg Respiratory Rate 16 /min Heart Rate 24 /min Fractional Exhaled Nitric Oxide 38 BMI (Body Mass Index) 37.0 kg/m2 Results Description No Information Available Procedures Date Code Description Status 04/05/2019 30698 Biologic Agent Administration Completed 03/07/2019 96460 Biologic Agent Administration Completed 03/07/2019 25821 Nitric Oxide Gas Determination Completed 03/07/2019 54277 Nitric Oxide Gas Determination Completed 03/07/2019 34708 Pre PFT Completed 02/08/2019 13943 Biologic Agent Administration Completed 01/11/2019 73289 Biologic Agent Administration Completed 12/07/2018 64646 Biologic Agent Administration Completed 11/07/2018 42639 Biologic Agent Administration Completed 10/12/2018 03876 Biologic Agent Administration Completed Medical Devices Description No Information Available Encounters Description No Information Available Assessments Date Code Description Provider 04/05/2019 J45.50 Severe persistent asthma, uncomplicated BONIFACIO Hays 04/05/2019 J30.81 Allergic rhinitis due to animal (cat) MITCHLEL Hays (dog) hair and dander 04/05/2019 J30.1 [...] M.D. 11/07/2018 L50.0 Allergic urticaria MITCHELL Romero 10/12/2018 J45.50 Severe persistent asthma, uncomplicated Quinn Kirkpatrick M.D. 10/12/2018 J45.50 Severe persistent asthma, uncomplicated BONIFACIO Hays 10/12/2018 J30.81 Allergic rhinitis due to animal (cat) Quinn Kirkpatrick M.D. (dog) hair and dander 10/12/2018 J30.81 Allergic rhinitis due to animal (cat) MITCHELL Hays (dog) hair and dander 10/12/2018 J30.1 Allergic rhinitis due to pollen Quinn Kirkpatrick M.D. 10/12/2018 J30.1 Allergic rhinitis due to pollen MITCHELL Hays 10/12/2018 Z68.36 Body mass index (BMI) 36.0-36.9, adult Quinn Kirkpatrick M.D. 10/12/2018 Z68.36 Body mass index (BMI) 36.0-36.9, adult LIZ Hays Plan of Treatment Future Appointment(s):05/29/2019 4:40 pm - MITCHELL Romero at [facility]05/01/2019 4:40 pm - MITCHELL Romero at [facility]04/05/2019 - BONIFACIO Hays-CJ45.50 Severe persistent asthma, urovmeinlncjeM81.81 Allergic rhinitis due to animal (cat) (dog) hair and oidqdnR30.1 Allergic rhinitis due to pollenFollow up:f/u 1 mo.Recommendations:Continue all medications as prescribed. Xolair 150 mg/ml inject 300mg every 4 weeks Azelastine HCL (Nasal) 0.15 % 1 spray each nostril twice daily as needed for nasal congestion/stuffiness Auvi-Q0.3 mg/0.3ml use as directed. im. Cetirizine HCL 10 mg 1 by mouth every day Xopenex HFA 45 mcg/Act 2 puffs q4-6 hours as needed for sob, cough, wheeze Ipratropium Laurel/Albuterol Sulfate 0.5-2.5 (3 ) mg/3ml 1 vial via nebulizer every 6 hours as needed. Levalbuterol HCL 1.25 mg/3ml use via nebulizer every 4 -6 hours prnr shortness of breath, cough or wheezing Albuterol Sulfate (2.5 mg/3ml) 0.083% #1 via nebulizer every 4-6 hours as needed for cough, shortness of breath and wheezing Symbicort 160-4.5 mcg/Act inhale 2 puffs in the morning and in the evening Montelukast Sodium 10 mg 1 tablet by mouth every evening Fluticasone Propionate 50 mcg/Act 1 squirt each nostril daily Will continue Spiriva Respimat 1.25mcg/Act 2 puffs daily. Will give Xolair today Discussed environmental controls. Use rescue inhaler 2 puffs 15 minutes prior to exercise to prevent exercise induced symptoms and every 4-6 hours as needed for cough, shortness of breath or wheezing. Please call if consistently using rescue inhaler > 2 times per week. Functional Status Description No Information Available Mental Status Description No Information Available Referrals Description No Information Available
--- OUTSIDE RECORDS SUMMARY | 2019-05-13 18:55 | XMS REPORT | Continuity of Care Document ---
:1975 External Reference #:[id number] Author Name Pablo Sigala M.D. (transmitted by agent of provider Jerrica Chacko) Address [address] [place] [address] Care Team Providers Name Role Phone Evita Sneed M.D. - Family Medicine Care Team Information [facility] [phone] Cameron Javier M.D - Obstetrics & Care Team Information [facility] Gynecology Problems Active Problems Provider Date Disorder of thyroid gland Pablo Sigala M.D. Onset: 03/27/2012 Toxic multinodular goiter Pablo Sigala M.D. Onset: 03/27/2012 Deviated nasal septum Pablo Sigala M.D. Onset: 03/27/2012 Social History Type Date Description Comments Sex Female Tobacco Use Start: Unknown Never Smoked Cigarettes ETOH Use Occasionally consumes alcohol Allergies, Adverse Reactions, Alerts Description No Known Drug Allergies Medications Active Medications SIG Qnty Indications Ordering Provider Date Levothyroxine Sodium 1 by mouth every 90tabs Pablo Sigala, 05/02/2019 day M.DSae 137mcg Tablets Fluoxetine HCL 2 weeks per Unknown 10mg month for PMDD Capsules Montelukast Sodium 1 po qd 30tabs Unknown 10mg Tablets Fluticasone Propionate 1 spray each 1units Unknown nostril qd 50mcg/Act Suspension Symbicort 2 puff twice a Unknown 160-4.5mcg/Act day Aerosol Rabeprazole Sodium one tab twice Unknown 20mg daily for [address] months Cetirizine HCL 1 by mouth every Unknown 10mg day Chewtabs Spiriva Respimat take 2 puffs Unknown once daily. 1.25mcg/Act Aerosol Topiramate 1 by mouth bid Unknown 25mg Tablets Immunizations Description No Information Available Vital Signs Date Vital Result Comment 05/02/2019 8:07am Weight 270.00 lb Height 72 inches 6'0" BMI (Body Mass Index) 36.6 kg/m2 BP Systolic 113 mmHg BP Diastolic 79 mmHg Heart Rate 72 /min O2 % BldC Oximetry 96 % Body Temperature 97.6 F Pain Level 0 04/12/2018 9:46am Weight 295.00 lb Height 72 inches 6'0" BMI (Body Mass Index) 40.0 kg/m2 BP Systolic 125 mmHg BP Diastolic 73 mmHg Heart Rate 80 /min O2 % BldC Oximetry 97 % Body Temperature 98.1 F Pain Level 0 Results Description No Information Available Procedures Date Code Description Status 05/02/2019 33607 Ultrasound Head/Neck Completed 05/02/2019 37573 Laryngoscopy W/ Stroboscopy Completed Medical Devices Description No Information Available Encounters Type Date Location Provider Dx Diagnosis Office Visit 05/02/2019 Main Office Pablo Sigala M.D. E03.9 Hypothyroidism, 8:00a unspecified E06.9 Thyroiditis, unspecified K21.9 Gastro-esophageal reflux disease without esophagitis J38.3 Other diseases of vocal cords Assessments Date Code Description Provider 05/02/2019 E03.9 Hypothyroidism, unspecified Pablo Sigala M.D. 05/02/2019 E06.9 Thyroiditis, unspecified Pablo Sigala M.D. 05/02/2019 K21.9 Gastro-esophageal reflux disease without Pablo Sigala M.D. esophagitis 05/02/2019 J38.3 Other diseases of vocal cords Pablo Sigala M.D. Plan of Treatment No Information Available Functional Status Description No Information Available Mental Status Description No Information Available Referrals Description No Information Available
[2019-05-13 19:05] VITALS: BP 120/76
--- NOTE | 2019-05-13 19:25 | UC ---
Back Pain HPI - HPI Summary HPI Summary: C/O right flank pain started 4 days ago and has been worsening. Not sleeping well and having fatigue. No fevers/ chills. - History of Current Complaint Chief Complaint: UCGeneralIllness Stated Complaint: NAUSEA,CHILLS/NO APPETITE,RIGHT SIDE BACK PAIN Hx Obtained From: Patient Hx Last Menstrual Period: 02/22/18 ?: No Onset/Duration: Sudden Onset, Lasting Days - 4, Worse Since - onset Timing: Constant Severity Initially: Mild Severity Currently: Moderate Pain Intensity: 7 Back Pain: Is Discrete @ - right flank, Radiates To - the right lower quadrant Character: Sharp, Burning Aggravating Factor(s): Movement Alleviating Factor(s): Nothing Associated Signs And Symptoms: Positive: Flank Pain. Negative: Swelling, Weakness, Numbness, Bladder Incontinence, Bowel Incontinence, Pain with Weight Bearing - Allergies/Home Medications Allergies/Adverse Reactions: Allergies Allergy/AdvReac Type Severity Reaction Status Date / Time adhesive tape Allergy Rash Verified 09/12/18 06:08 latex Allergy Rash Verified 05/13/19 19:05 bees Allergy Swelling Uncoded 09/12/18 06:08 Of Face,Lips,& Throat Home Medications: Home Medications Tiotropium CAP.INH (NF) [Spiriva CAP.INH*] 1 cap.inh INH DAILY 05/13/19 [ History Confirmed 05/13/19] Topiramate TAB(*) [Topamax 25 MG tab] 25 mg PO BID 05/13/19 [History Confirmed 05/13/19] PMH/Surg Hx/FS Hx/Imm Hx Previously Healthy: Yes Endocrine History: Hypothyroidism Other History Of: Negative For: HIV, Hepatitis B, Hepatitis C, Anticoagulant Therapy - Surgical History Surgical History: Yes Surgery Procedure, Year, and Place: , 2013, [facility]. Endoscopy, 1996, [facility]. T&A, 1990. weight loss surgery 09/01/16. lap luca 11/14/16. hysterectomy -09/2018 - Family History Known Family History: Positive: Cardiac Disease, Hypertension, Diabetes - Social History Occupation: Employed Full-time Lives: With Family Alcohol Use: None Substance Use Type: None Smoking Status (MU): Former Smoker Have You Smoked in the Last Year: No When Did the Patient Quit Smoking/Using Tobacco: 1999 - Immunization History Most Recent Influenza Vaccination: September 2013 Most Recent Tetanus Shot: UTD Review of Systems All Other Systems Reviewed And Are Negative: Yes Constitutional: Positive: Fatigue Musculoskeletal: Positive: Myalgia - right flank Is Patient Immunocompromised?: No Physical Exam Triage Information Reviewed: Yes Appearance: Well-Appearing, Well-Nourished, Pain Distress - mild Vital Signs: Initial Vital Signs Temp 99 F 05/13/19 18:58 Pulse 70 05/13/19 18:58 Resp 16 05/13/19 18:58 BP 120/76 05/13/19 18:58 Pulse Ox 99 05/13/19 18:58 Vital Signs Reviewed: Yes Eyes: Positive: Conjunctiva Clear Neck exam: Normal Respiratory Exam: Normal Cardiovascular Exam: Normal Abdomen Description: Negative: Nontender - RLQ tenderness, CVA Tenderness (R) Bowel Sounds: Positive: Present Musculoskeletal Exam: Normal Neurological: Positive: Other: - Increased sensitivity to pinprick on the right around the T11 dermatome. Psychological Exam: Normal Skin Exam: Normal Diagnostics - Radiology No standard instances Radiology Interpretation Completed By: ED Physician Summary of Radiographic Findings: No acute changes Back Pain Course/Dx - Differential Dx/Diagnosis Differential Diagnosis/HQI/PQRI: Herniated Disc, Renal Colic, Strain, Sprain Provider Diagnosis: Radiculopathy of thoracolumbar region Discharge ED - Sign-Out/Discharge Documenting (check all that apply): Patient Departure All imaging exams completed and their final reports reviewed: No - Discharge Plan Condition: Stable Disposition: HOME Prescriptions: Gabapentin CAP(*) [Neurontin 300 CAP(*)] 300 mg PO BEDTIME #30 cap predniSONE TAB* [Deltasone 20 MG TAB*] 60 mg PO DAILY #18 tab Patient Education Materials: Cervical Radiculopathy (ED), Prednisone (By mouth) Referrals: Evita Sneed MD [Primary Care Provider] - 4 Days Additional Instructions: pinched nerve is in the thoracic spine. GABAPENTIN: Gabapentin is an anti-seizure medication that is more often used for nerve pain. It helps to stabilize the nerve to stop the pain. Its primary side effect is sedation which will improve over time. Most people will start with only one capsule 1 to 2 hours before bed. You can also decrease it to discontinue it if the pain is resolving. - Billing Disposition and Condition Condition: STABLE Disposition: Home
--- NOTE | 2019-05-14 09:45 | UC ---
- Progress Note Progress Note: Patient Name: SHARRON BAIRES Medical Record#: [id number] Ordering Physician: Bobo Joshi MD Acct.#: [id number] : 1975 Age: 43 Sex: F Location: [facility] Exam Date: 05/13/191917 ADM Status: [facility] ER Order Information: THORACIC SPINE 2 VWS Accession Number: [id number] CPT: 34898 INDICATION: T11 radiculopathy. COMPARISON: Comparison is made with a prior chest x-ray study from March 25, 2015. TECHNIQUE: AP and lateral films of the dorsal spine were obtained. FINDINGS: There is a mild dorsal scoliosis convex toward the right side. No fracture is seen. There is mild degenerative disc disease in the mid and lower dorsal spine. IMPRESSION: NO EVIDENCE FOR FRACTURE. R0 Preliminary Imaging Read R0 <Electronically signed by Triston Simons MD in OV> 05/14/19712 Dictated By: Triston Simons MD Dictated Date/Time: 05/14/19709 Transcribed Date/Time: 05/14/19709 Copy to: CC:Bobo Joshi MD; Evita Sneed MD Imaging - [facility] Imaging [facility] [address] [place] [address] ph ([phone]) ph ([phone]) ph ([phone]) This report is only to be considered final once signed by the Provider(s) as displayed in the "<Electronically Signed by >" field (s). Absence of a signature indicates the report is in a draft status and still needs to be finalized. In the event this document was created by someone other than the signing Provider, the individual initiating the document will be listed in the "Entered by:" or "Dictated by:" guerrero. 1 of 1 Course/Dx - Diagnoses Provider Diagnoses: Radiculopathy of thoracolumbar region Discharge ED - Sign-Out/Discharge Documenting (check all that apply): Post-Discharge Follow Up All imaging exams completed and their final reports reviewed: Yes - Discharge Plan Condition: Stable Disposition: HOME Prescriptions: Gabapentin CAP(*) [Neurontin 300 CAP(*)] 300 mg PO BEDTIME #30 cap predniSONE TAB* [Deltasone 20 MG TAB*] 60 mg PO DAILY #18 tab Patient Education Materials: Prednisone (By mouth), Cervical Radiculopathy (ED) Referrals: Evita Sneed MD [Primary Care Provider] - 4 Days Additional Instructions: pinched nerve is in the thoracic spine. GABAPENTIN: Gabapentin is an anti-seizure medication that is more often used for nerve pain. It helps to stabilize the nerve to stop the pain. Its primary side effect is sedation which will improve over time. Most people will start with only one capsule 1 to 2 hours before bed. You can also decrease it to discontinue it if the pain is resolving. - Billing Disposition and Condition Condition: STABLE Disposition: Home
== END 2019-05-13 20:33 | disposition home or self-care (01) ==
LOC: UCCORT 18:39
DX: M54.15 Radiculopathy, thoracolumbar region (principal); R10.9 Unspecified abdominal pain; Z91.040 Latex allergy status; Z91.09 Other allergy status, other than to drugs and biological substances; Z91.030 Bee allergy status; Z87.891 Personal history of nicotine dependence
CPT/HCPCS: 72070; 81003; 99212; G0463